=== PATIENT | female | born 1975 | race Caucasian/White ===

== ENCOUNTER 2018-11-24 06:47 | Day surgery (SDC) | payer OTHER ==
[~2018-11-24 06:47] MED LIST: Lactated Ringers 1,000 ML IV SCH; Lidocaine 1%/Sod Bicarbonate in NS 8.4% 1 ML Syringe IDERM PRN; Sodium Chloride 0.9% 10 ML Syringe FLUSH PRN
[2018-11-24] MEDS ORDERED: Lidocaine 1% with EPINEPHrine 1:100,000 20 ML MDV ONE (07:07)
[2018-11-24] MEDS ORDERED: Bupivacaine 0.5% 30 ML SDV ONE (07:08)
[2018-11-24] MEDS ORDERED: Sodium Chloride 0.9% 50 ML SDV ONE (07:08)
[2018-11-24] MEDS ORDERED: Scopolamine 1.5 MG Transdermal Patch TRDERM PRN (07:43)
--- NOTE | 2018-11-24 07:54 | PCM.PREANE ---
Preanesthetic Assessment - Anesthesia/Transfusion/Family Hx Anesthesia History: Prior Anesthesia Reaction (nausea) Family History of Anesthesia Reaction: No Transfusion History: No Prior Transfusion(s) - Review of Systems General: Other (head cold) Pulmonary: No Symptoms Cardiovascular: No Symptoms Gastrointestinal: No Symptoms Neurological: Numbness (right hand carrpal tunnel) Other: Reports: None - Physical Assessment NPO Status Date: 11/23/18 NPO Status Time: 23:20 Pulse: 70 O2 Sat by Pulse Oximetry: 95 Respiratory Rate: 16 Blood Pressure: 105/76 Temperature: 37.6 C Vital Signs: Last Vital Signs Temp 37.6 C 11/24/18 07:00 Pulse 70 11/24/18 07:00 Resp 16 11/24/18 07:00 BP 105/76 11/24/18 07:00 Pulse Ox 95 11/24/18 07:00 Height: 1.63 m Weight: 71.214 kg ASA Class: 2 Mental Status: Alert & Oriented x3 Airway Class: Mallampati = 1 Dentition: Reports: Normal Dentition, [place](s) Thyro-Mental Finger Breadths: 3 Mouth Opening Finger Breadths: 3 ROM/Head Extension: Full Lungs: Clear to Auscultation, Normal Respiratory Effort Cardiovascular: Regular Rate, Regular Rhythm, No Murmurs - Lab Values: Laboratory Last Values WBC 8.61 K/mm3 (3.98-10.04) 11/22/18 11:51 RBC 4.56 M/mm3 (3.98-5.22) 11/22/18 11:51 Hgb 15.0 gm/L (11.2-15.7) 11/22/18 11:51 Hct 42.7 % (34.1-44.9) 11/22/18 11:51 MCV 93.6 fl (79.4-94.8) 11/22/18 11:51 MCH 32.9 pg (25.6-32.2) H 11/22/18 11:51 MCHC 35.1 g/dl (32.2-35.5) 11/22/18 11:51 RDW Std Deviation 40.2 fL (36.4-46.3) 11/22/18 11:51 Plt Count 246 K/mm3 (182-369) 11/22/18 11:51 MPV 9.9 fl (9.4-12.3) 11/22/18 11:51 Neut % (Auto) 66.9 % (34.0-71.1) 11/22/18 11:51 Lymph % (Auto) 22.4 % (19.3-51.7) 11/22/18 11:51 [place] % (Auto) 9.5 % (4.7-12.5) 11/22/18 11:51 Eos % (Auto) 0.9 (0.7-5.8) 11/22/18 11:51 Baso % (Auto) 0.2 % (0.1-1.2) 11/22/18 11:51 Neut # (Auto) 5.75 K/mm3 (1.56-6.13) 11/22/18 11:51 Lymph # (Auto) 1.93 K/mm3 (1.18-3.74) 11/22/18 11:51 [place] # (Auto) 0.82 K/mm3 (0.24-0.36) H 11/22/18 11:51 Eos # (Auto) 0.08 K/mm3 (0.04-0.36) 11/22/18 11:51 Baso # (Auto) 0.02 K/mm3 (0.01-0.08) 11/22/18 11:51 Creatinine 0.8 mg/dL (0.55-1.02) 11/22/18 11:51 Est Cr Clr Drug Dosing TNP 11/22/18 11:51 Estimated GFR (MDRD) > 60 mL/min (>60) 11/22/18 11:51 Urine Color Yellow (Yellow) 11/22/18 11:51 Urine Appearance Clear (Clear) 11/22/18 11:51 Urine pH 6.5 (5.0-8.0) 11/22/18 11:51 Ur Specific [place] 1.025 (1.005-1.030) 11/22/18 11:51 Urine Protein Negative (Negative) 11/22/18 11:51 Urine Glucose (UA) Negative (Negative) 11/22/18 11:51 Urine Ketones Negative (Negative) 11/22/18 11:51 Urine Occult Blood Negative (Negative) 11/22/18 11:51 Urine Nitrite Negative (Negative) 11/22/18 11:51 Urine Bilirubin Negative (Negative) 11/22/18 11:51 Urine Urobilinogen 0.2 (0.2-1.0) 11/22/18 11:51 Ur Leukocyte Esterase Trace (Negative) H 11/22/18 11:51 Urine RBC 0-5 /hpf (0-5) 11/22/18 11:51 Urine WBC 0-5 /hpf (0-5) 11/22/18 11:51 Ur Epithelial Cells 0-5 /hpf (0-5) 11/22/18 11:51 Urine Bacteria Few /hpf (FEW) 11/22/18 11:51 Urine Mucus Few /hpf (FEW) 11/22/18 11:51 Urine HCG, Qual Negative (NEGATIVE) 11/22/18 11:51 Blood Type AB POSITIVE 11/22/18 11:51 Gel Antibody Screen Negative 11/22/18 11:51 - Allergies Allergies/Adverse Reactions: Allergies Allergy/AdvReac Type Severity Reaction Status Date / Time cefaclor [From Ceclor] Allergy Other Verified 11/24/18 07:40 Penicillins Allergy Hives Verified 11/24/18 07:40 - Blood Blood Available: Yes Product(s) Available: PRBC - Anesthesia Plan Pre-Op Medication Ordered: None - Acknowledgements Anesthesia Type Planned: General Anesthesia Pt an Appropriate Candidate for the Planned Anesthesia: Yes Alternatives and Risks of Anesthesia Discussed w Pt/Guardian: Yes Pt/Guardian Understands and Agrees with Anesthesia Plan: Yes PreAnesthesia Questionnaire HEENT History: Reports: None Cardiovascular History: Reports: None Respiratory History: Reports: None Other Gastrointestinal History: Right upper quadrant abdominal pain Other Genitourinary History: Pelvic pain [employer] History: Reports: Endometrial Ablation, , Other (See Below) Other OB/BYN History: Hysteroscopy Musculoskeletal History: Reports: None Neurological History: Reports: None Psychiatric History: Reports: None Endocrine/Metabolic History: Reports: None Hematologic History: Reports: None Immunologic History: Reports: None Oncologic (Cancer) History: Reports: None Dermatologic History: Reports: Other (See Below) Other Dermatologic History: Hyperhidrosis of axilla - Past Surgical History Head Surgeries/Procedures: Reports: None HEENT Surgical History: Reports: LASIK Cardiovascular Surgical History: Reports: None Respiratory Surgical History: Reports: None GI Surgical History: Reports: None Female Surgical History: Reports: None Endocrine Surgical History: Reports: None Neurological Surgical History: Reports: Other (See Below) Other Neurological Surgeries/Procedures: Cervical surgery Musculoskeletal Surgical History: Reports: None Oncologic Surgical History: Reports: None Dermatological Surgical History: Reports: None - SUBSTANCE USE Smoking Status *Q: Former Smoker Tobacco Use Within Last Twelve Months: No Second Hand Smoke Exposure: No Days Per Week of Alcohol Use: 1 Number of Drinks Per Day: 1 Total Drinks Per Week: 1 Recreational Drug Use History: No - HOME MEDS Home Medications: Home Meds . [No Known Home Meds] 11/23/18 [History] - CURRENT (IN HOUSE) MEDS Current Meds: Current Medications Lactated Ringer's (Ringers, Lactated) 1,000 mls @ 125 mls/hr IV ASDIRECTED CORDELIA Last Admin: 11/24/18 07:15 Dose: 125 mls/hr Lidocaine/Sodium Bicarbonate (Buffered Lidocaine 1% In Ns 8.4%) 0.25 ml IDERM ONETIME PRN PRN Reason: Prior to IV Start Last Admin: 11/24/18 07:14 Dose: 0.25 ml Scopolamine (Transderm-Scop) 1.5 mg TRDERM ONETIME PRN PRN Reason: Nausea/Vomiting Stop: 11/24/18 18:00 Sodium Chloride (Saline Flush) 10 ml FLUSH ASDIRECTED PRN PRN Reason: Keep Vein Open Discontinued Medications Bupivacaine HCl (Marcaine 0.5%) Confirm Administered Dose 30 ml .ROUTE .STK-MED ONE Stop: 11/24/18 07:09 Lidocaine/Epinephrine (Xylocaine 1% With Epinephrine 1:100,000) Confirm Administered Dose 20 ml .ROUTE .STK-MED ONE Stop: 11/24/18 07:08 Sodium Chloride (Normal Saline) Confirm Administered Dose 50 ml .ROUTE .STK-MED ONE Stop: 11/24/18 07:09
[2018-11-24] MEDS ORDERED: fentaNYL 250 MCG/5 ML SDV ONE (08:54)
[2018-11-24] MEDS ORDERED: Propofol 200 MG/20 ML SDV ONE ×2 (08:54→09:51)
[2018-11-24] MEDS ORDERED: Midazolam 1 MG/ML 2 ML SDV ONE (08:54)
[2018-11-24] MEDS ORDERED: Ondansetron 4 MG/2 ML SDV ONE (08:56)
[2018-11-24] MEDS ORDERED: Dexamethasone 4 MG/ML 5 ML MDV ONE (08:56)
[2018-11-24] MEDS ORDERED: Lidocaine 1% 4 ML ONE (08:56)
[2018-11-24] MEDS ORDERED: Rocuronium 50 MG/5 ML Vial ONE (08:56)
[2018-11-24] MEDS ORDERED: ceFAZolin 1 GM Vial ONE (09:00)
[2018-11-24] MEDS ORDERED: Ketamine 500 mg/10 ML MDV ONE (09:19)
[2018-11-24] MEDS ORDERED: HYDROmorphone 0.5 MG/0.5 ML Syringe ONE ×2 (09:20)
[2018-11-24] MEDS ORDERED: Lactated Ringers 1,000 ML ONE (09:35)
[2018-11-24] MEDS ORDERED: Ketorolac 30 MG/ML SDV ONE (09:59)
[2018-11-24] MEDS ORDERED: Acetaminophen/oxyCODONE 325-5 MG Tab PO PRN (10:05)
[2018-11-24] MEDS ORDERED: Ondansetron 4 MG/2 ML SDV IVPUSH PRN ×2 (10:05→10:29)
--- NOTE | 2018-11-24 10:10 | PCM.OPNOTE ---
- General Post-Op/Procedure Note Date of Surgery/Procedure: 11/24/18 Operative Procedure(s): Total vaginal hysterectomy with bilateral salpingectomy Findings: Uterus was within normal doses far as size is concerned. Ovaries were functional in appearance small simple cyst left ovary. Moderate scarring within the endometrial cavity consistent with endometrial ablation. Pre Op Diagnosis: 1. Pelvic pain. 2. Status post endometrial ablation Post-Op Diagnosis: Same Anesthesia Technique: General ET Tube Other Anesthesia Type: Lidocaine quarter percent with [id number] mL total Primary Surgeon: Partha Blas Secondary Surgeon: Layton Camacho Anesthesia Provider: Danny Grullon Reason Editor Publications Was Necessary: Retraction, assistance, patient safety, quantity of care Role of Editor Publications: Same Pathology: Uterus and bilateral fallopian tubes in one specimen container Fluid Replacement, Intraop: 1,200 EBL in mLs: 25 Complications: None Condition: Good Free Text/Narrative:: Surgery duration: 35 minutes Procedure: The patient was placed in supine position on the operating table. General endotracheal anesthesia was accomplished. After positioning, and adequate prep and drape, the procedure was then performed. Sterile speculum was placed in the vagina and cervix was visualized. Cervix was injected with lidocaine quarter percent with epinephrine-20 mL used. A full circumference incision was made in the cervical epithelium. The bladder was pushed well back off cervix. Posterior cul-de-sac was then entered sharply without problems. Left uterosacral was crossclamped with a Enseal vessel closure system. The left uterosacral and then the right uterosacral ligament pedicles were developed using the Enseal system. The anterior cul-de-sac was then entered without problems and the uterine vasculature, cardinal ligament and broad ligament were then developed using Enseal vessel closure system. The uterus was inverted at this time and upper broad ligament fallopian tube pedicles were crossclamped with Bree clamps. Specimen was totally removed. Both these pedicles were then secured with a Bree stitch of #1 Vicryl. Left and right fallopian tube were normal in appearance.. Using Enseal vessel closure system each of the tubes was then removed and sent with the specimen. The patient was found to be hemostatically intact at this time. Vaginal cuff was sutured for hemostatic reasons with a running locked suture of 0 Monocryl from the 2 o'clock position to the 10 o'clock position posteriorly. Vaginal cuff was then closed from right to left side with a running locked suture of 0 Monocryl. Patient was returned to supine position and awakened from general endotracheal anesthesia. She tolerated the procedure and left the operating room in satisfactory condition.
[2018-11-24] MEDS ORDERED: Ketorolac 30 MG/ML SDV IVPUSH SCH (10:15)
--- NOTE | 2018-11-24 10:20 | PCM.POSTAN ---
POST ANESTHESIA ASSESSMENT - MENTAL STATUS Mental Status: Alert, Oriented - VITAL SIGNS Pulse Rate: 54 SaO2: 95 Resp Rate: 13 Blood Pressure: 107/65 Temperature: 37.4 C - RESPIRATORY Respiratory Status: Respiratory Rate WNL, Airway Patent, O2 Saturation Stable, Supplemental Oxygen - CARDIOVASCULAR CV Status: Pulse Rate WNL, Blood Pressure Stable - GASTROINTESTINAL GI Status: No Symptoms - PAIN Pain Score: 0 - POST OP HYDRATION Hydration Status: Adequate & Stable
[2018-11-24] MEDS ORDERED: diphenhydrAMINE 50 MG/ML SDV IVPUSH PRN (10:29)
[2018-11-24] MEDS ORDERED: fentaNYL 100 MCG/2 ML SDV IVPUSH PRN (10:29)
[2018-11-24] MEDS ORDERED: HYDROmorphone 0.5 MG/0.5 ML Syringe IVPUSH PRN (10:29)
[2018-11-24] MEDS ORDERED: Meperidine 50 MG/ML Vial IVPUSH PRN (10:29)
[2018-11-24] MEDS ORDERED: diphenhydrAMINE 50 MG/ML SDV IVPUSH ONE (10:45)
--- NOTE | 2018-11-24 11:25 | PCM48HPAN ---
Post Anesthesia Note - EVALUATION WITHIN 48HRS OF ANESTHETIC Vital Signs in Normal Range: Yes Patient Participated in Evaluation: Yes Respiratory Function Stable: Yes Airway Patent: Yes Cardiovascular Function Stable: Yes Hydration Status Stable: Yes Pain Control Satisfactory: Yes Nausea and Vomiting Control Satisfactory: Yes Mental Status Recovered: Yes
== END 2018-11-24 13:30 | disposition home or self-care (01) ==
LOC: JD.SDS 06:47
PROVIDERS: ATTEND Obstetrics & Gynecology
DX: R10.2 Pelvic and perineal pain (principal); N87.9 Dysplasia of cervix uteri, unspecified; N88.8 Other specified noninflammatory disorders of cervix uteri; N72 Inflammatory disease of cervix uteri; N80.0 Endometriosis of uterus; N73.6 Female pelvic peritoneal adhesions (postinfective); N83.8 Other noninflammatory disorders of ovary, fallopian tube and broad ligament; Z87.891 Personal history of nicotine dependence; Z88.1 Allergy status to other antibiotic agents
CPT/HCPCS: 36415; 58552; 81001; 81025; 82565; 85025; 86850; 86900; 86901; A9270; J0690; J1100; J1170; J1200; J1885; J2250; J2405; J2704; J3010; J3490; J7120; J2001

== ENCOUNTER 2018-12-13 11:34 | Inpatient (IN) | payer OTHER ==
[2018-12-13] MEDS ORDERED: Ondansetron 4 MG Tab.DIS PO PRN (11:55)
[2018-12-13] MEDS ORDERED: Sodium Chloride 0.9% 1,000 ML IV ONE (12:30)
[2018-12-13] MEDS ORDERED: Diatrizoate Meglumine/Diatrizoate Sodium 37% 120 ML Bottle PO ONE (12:45)
[2018-12-13] MEDS ORDERED: Iopamidol 612 MG/ML 100 ML Bottle IVPUSH ONE (12:45)
[2018-12-13] MEDS ORDERED: Sodium Chloride 0.9% 10 ML Syringe FLUSH PRN (12:45)
[2018-12-13] MEDS: HYDROmorphone 1 MG/ML Syringe IVPUSH PRN ×3 (12:50→21:10)
[2018-12-13] MEDS: Acetaminophen 325 MG Tab PO PRN ×2 (13:44→20:27)
[2018-12-13] MEDS: Dextrose 5%-Lactated Ringers 1,000 ML IV SCH ×2 (13:45→21:09)
--- NOTE | 2018-12-13 14:56 | CT ---
CT abdomen and pelvis Technique: Multiple axial sections were obtained from above the dome of the diaphragm inferiorly through the pubic symphysis. Intravenous and oral contrast was utilized. Oral contrast does not completely opacify the bowel. Comparison: Prior CT exam of 12/08/18. Findings: Lung bases that are seen appear without acute parenchymal change. Liver contains no focal parenchymal abnormality. Gallbladder contains no calcified gallstones. Spleen appears within normal limits. Mild amount of fluid is seen throughout the abdomen which is an interval change from previous exam. Fluid also seen to extend into the pelvis. Kidneys show symmetric contrast enhancement without hydronephrosis or discrete mass. Adrenal glands show no nodule. Pancreas is within normal limits. Aorta shows no aneurysm. No retroperitoneal adenopathy or discrete mesenteric abnormalities are seen. Upper infundibulum of the right kidney is well opacified on current study and is better seen on current exam than previous and appears normal. Delayed images show contrast within the distal ureters as well as bladder. Appendix is not visualized with certainty due to haziness being seen within the pelvic fat. Previous hysterectomy is noted. Cystic change is noted within both ovaries which is felt to be physiologic. Focal collection of low density is seen within the cul-de-sac measuring about 4.3 cm in size. Uncertain if this is due to loculated ascites or due to abscess as the Hounsfield unit measurements are in the 20s. Bone window settings were reviewed which show spondylolytic defects at L5-S1 with degenerative change at L5-S1. Rudimentary disc is again noted at S1-S2. Impression: 1. Small amount of ascites throughout the abdomen and pelvis. 2. Haziness within the pelvic fat is seen. This obscures visualization of the appendix. 3. Focal fluid within the cul-de-sac either due to abscess or loculated ascites. Abscess most likely given the history of abdominal pain and fever. 4. Upper pole calyx within the right kidney is well seen on current exam and no further follow-up of the finding seen on previous CT is needed. Diagnostic code #3
[2018-12-13] MEDS: Meropenem Premix 500 MG in Premix Bag 1 BAG IV SCH ×2 (15:34→21:09)
[2018-12-13] MEDS: Ibuprofen 600 MG Tab PO PRN (17:19)
[2018-12-13] MEDS: Ondansetron 4 MG/2 ML SDV IVPUSH PRN (20:27)
[2018-12-14] MEDS: Meropenem Premix 500 MG in Premix Bag 1 BAG IV SCH ×4 (03:56→22:04)
[2018-12-14] MEDS: Dextrose 5%-Lactated Ringers 1,000 ML IV SCH (03:56)
[2018-12-14] MEDS: HYDROmorphone 1 MG/ML Syringe IVPUSH PRN ×3 (07:10→13:19)
--- NOTE | 2018-12-14 07:52 | HP ---
DATE OF ADMISSION: 12/13/2018 ADMISSION DIAGNOSIS: Vaginal cuff abscess/cellulitis. HISTORY OF PRESENT ILLNESS: The patient is a 43-year-old 2, para 2-0-0-2 white female who was seen in clinic today with complaints of fever, chills, and increased abdominal pain, and was found to have a temperature elevation to 100.3 degrees, abdominal pain, which is generalized with some guarding. On evaluation, her white blood count was found to be normal and there was mild leukocytosis, but the remainder part of CBC, comprehensive metabolic profile, and urinalysis were remarkable only for 5-10 white blood cells in the urine and positive blood present. The patient was evaluated with blood cultures, which are pending. She is admitted for evaluation and underwent a CAT scan with contrast. CAT scan with contrast showed what appeared to be a 4.3 cm in the largest dimension collection of fluid in the pelvis just above the vaginal cuff, which appears to be possible abscess, possible cellulitis of the vaginal cuff. The patient has a small amount of fluid in the peritoneal cavity, possibly inflammatory in nature. Urinary tract appears normal with normal visualization of kidneys, ureters, and bladder. Previously unseen upper pole of the right kidney is seen now and is entirely without problems. Working diagnosis is a pelvic infection. She is status post surgery on 11/24/2018 consisting of a total vaginal hysterectomy with bilateral salpingectomy. The patient's surgery was unremarkable. The preoperative diagnosis at that time was pelvic pain status post endometrial ablation. The patient's initial postoperative course was unremarkable, but on 12/08/2018 she was seen in clinic at which time she was evaluated with a CAT scan of the pelvis because of blood in her urine and pelvic pain. That CAT scan with contrast showed a poorly seen superior infundibulum on the delayed images within the right upper kidney. Retrograde study was recommended. Other portions of kidneys and collecting system appeared to be within normal limits. There were degenerative changes within the lumbar spine, which were similar to prior CAT scan. Other normal findings were present. No evidence of pelvic or abdominal mass noted. At that time and again today, the creatinine was within normal limits. A culture was performed on the urine and this showed group B Streptococcus 30,000 to 40,000. The patient is allergic to penicillin and cephalosporins. Therefore, was treated with Levaquin 500 mg p.o. daily. Approximately 2 days ago, she began having some low-grade temperatures, which she increased to moderate temperature elevation, and pain increased. She at this time was having some dehydration secondary to inability to keep fluids down, generalized abdominal discomfort, and continued minimal vaginal bleeding. PAST MEDICAL HISTORY: 1. Vaginal delivery x2. 2. Chronic pelvic pain. PAST SURGICAL HISTORY: 1. Total vaginal hysterectomy with bilateral salpingectomy on 11/24/2018. 2. Endometrial ablation. 3. Corneal LASIK surgery. 4. Neck surgery. FAMILY HISTORY: Maternal grandmother diagnosed with breast cancer at age 48. Family history of heart disease in females before age 60 and some other heart disease noted in the extended family. SOCIAL HISTORY: The patient is . She lives in [facility]. She is a former smoker. She does not use any alcohol, drugs, or tobacco at this time. She exercises 4-5 times per week. REVIEW OF SYSTEMS: GENERAL: The patient feels poorly. She is somewhat lethargic and has generalized discomfort. She is running a fever. SKIN: Warm and dry without lesions. HEENT: Neck and back within normal limits. LUNGS: Clear with good breath sounds in all lung phillip. CARDIOVASCULAR: Shows regular rate and rhythm without murmurs. BREASTS: Deferred. ABDOMEN: Shows positive bowel sounds. It is flat. It is tender with palpation with some guarding noted. There is pain extending around from the costovertebral angles to the front and involving most of the pelvis. Bimanual exam is not done at this time because of the patient's significant discomfort. EXTREMITIES AND NEUROLOGICAL: Grossly within normal limits. LABORATORY DATA: Laboratory testing done on 12/13/2018 shows urinalysis which is slightly cloudy, specific gravity is 1.020, protein is 1+, blood is 1+, leukocyte esterase activity is 1+, wbc's are 5-10 per high-power field, and epithelial cells are 5- 10 per high-power field. Urine culture is set up. Her CBC shows a white blood count of 4.77, hemoglobin is 14, hematocrit is 41.3, and platelets were 357,000. Neutrophils are 82.3%. Comprehensive metabolic profile shows a random glucose of 111. Her creatinine is 0.8 mg/dL. Bilirubin is mildly elevated at 1.2 and A/P ratio is 0.8. Her alkaline phosphatase, ALT, and AST are within normal limits. ASSESSMENT: 1. Pelvic infection most probably secondary to vaginal cuff abscess/cellulitis. 2. Status post total vaginal hysterectomy with bilateral salpingectomy on 11/24/2018. 3. Group B strep positive urine culture approximately 1 week ago, treated initially with Macrobid, and then when culture results/sensitivities returned, Levaquin 500 mg p.o. daily. 4. Generally, healthy female. PLAN: 1. I have consulted Pharmacy for recommendations concerning antibiotic therapy in this patient considering her allergies. 2. IV rehydration with normal saline initially, then D5 LR. Will do I and O. 3. Dilaudid 0.5 mg every 2 hours IV p.r.n. for pain. 4. Tylenol for reduction in temperature. 5. We will reassess the patient's exam within the next 12 hours after pain control is on board and antibiotics had been in place for some time to determine whether there is any fluctuance to vaginal cuff abscess findings. 6. Blood cultures are pending. MMODAL /[id number]
[2018-12-14] MEDS ORDERED: Dextrose 5%-Lactated Ringers 1,000 ML IV SCH (08:15)
--- NOTE | 2018-12-14 09:04 | PCM.SN ---
- Free Text/Narrative Note: Patient's pain is improved this morning. She rates it 3-4 on a scale 10. She has taken a lot of on a couple occasions. Last was at 0710 hrs. this morning. She had not had any pain medications since last evening. By patient care documentation appears that she slept well. She reports that she slept poorly. Had some difficulty passing water last night but has gone to the bathroom this morning without problems. Nausea has improved significantly. Clinically patient is been afebrile. Vital signs and stable. In general patient looks much more comfortable in yesterday. Her color has returned. HEENT, neck and back within normal. Dehydration. Result. Abdomen is flat, soft, tender with palpation. Or tenderness noted above the umbilicus and below the umbilicus. No guarding or rebound tenderness noted. No inguinal lymphadenopathy.. Genital exam per bimanual shows minimal discomfort in the area of the vaginal cuff. There is no area of fluctuance or abscess palpated. Nothing that appears to be of appropriate size or consistency to drain. Patient reports she has more pain father of the abdomen or down. Findings most probably consistent with a generalized peritonitis. Extremities and neurological exam grossly within normal limits. Assessment: 1. Pelvic infection possible cuff cellulitis/possible abscess. Condition improved on antibiotics since yesterday. 2. Nausea improved. Will restart regular diet. 3. Blood cultures pending 4. Fairly normal bowel activity. Appetite returned. Plan: 1. Increase diet regular. 2. Regular activity with assistance 3. Continue antibiotics as of present 4. Switch to ibuprofen from a lot of as. 5. Zofran when necessary nausea as indicated. 6. Obtain a CBC later today 7. Consider redoing abdominal pelvic CAT scan tomorrow.
[2018-12-14] MEDS: Acetaminophen 325 MG Tab PO PRN (10:24)
[2018-12-14] MEDS: Ondansetron 4 MG/2 ML SDV IVPUSH PRN ×2 (10:26→16:32)
[2018-12-14] MEDS: Docusate Sodium 100 MG Cap PO SCH (10:39)
[2018-12-14] MEDS: Ibuprofen 600 MG Tab PO PRN ×2 (15:13→22:03)
[2018-12-14] MEDS: Acetaminophen/oxyCODONE 325-5 MG Tab PO PRN ×3 (16:49→22:02)
[2018-12-14] MEDS ORDERED: Zolpidem 5 MG Tab PO PRN (19:57)
[2018-12-15] MEDS: Docusate Sodium 100 MG Cap PO SCH ×2 (00:39→08:40)
[2018-12-15] MEDS: Meropenem Premix 500 MG in Premix Bag 1 BAG IV SCH ×4 (03:04→22:07)
[2018-12-15] MEDS: Acetaminophen/oxyCODONE 325-5 MG Tab PO PRN ×2 (06:32→10:02)
[2018-12-15] MEDS: Ibuprofen 600 MG Tab PO PRN ×3 (06:33→22:09)
--- NOTE | 2018-12-15 08:22 | PCM.SN ---
- Free Text/Narrative Note: Hospital day 2: Patient feels much better this a.m. Her mother reports that she had one short episode of chills last night. Patient reports she slept well and which is what the patient's care record indicates also. Her pain is 3 on a scale of 10. She is voiding well. She has had some loose stools. These have been infrequent however. She is tolerating fluids well but has not tried solid foods yet. She has been taking her present for pain. Takes 1-2 every 4 hours when necessary. Clinically her vital signs are stable. Patient is been afebrile since late yesterday afternoon. In general patient appears to be well-developed, well-nourished, slender individual. She is alert and oriented 3 and appears more cheerful today. HEENT, neck and back within normal limits. Lungs are clear with good breath sounds in all lung phillip. Cardiovascular exam shows regular rate and rhythm without murmurs. Abdomen shows positive bowel sounds. Is flat, soft, tender with deep palpation. Subjectively pain is significantly improved from previous evaluation yesterday before. Legs nontender. Laboratory testing shows white count 9.96-unchanged from yesterday. Hemoglobin and hematocrit 10.4 and 30.7 with platelets 240,000. CMP is within normal limits with the exception of potassium which is minimally decreased at 3.4. Assessment: 1. Pelvic infectioncuff cellulitis versus cuff abscess. Clinical condition improving. 2. Some loose stoolsquestion related to antibiotic therapy 3. Her preliminary blood cultures have returned negative. Plan: 1. Repeat CT of pelvis today 2. Continue present antibiotic regimen-have consulted pharmacy for recommendations re: modification of dose, associated loose stools patient reported by patient and potiential options for post-hospital antibiotic therapy 3. Percocet and ibuprofen for pain control 4. Regular diet 5. Await final blood and urine culture results
[2018-12-15] MEDS: Ondansetron 4 MG/2 ML SDV IVPUSH PRN (10:02)
[2018-12-15] MEDS ORDERED: Sodium Chloride 0.9% 10 ML Syringe FLUSH ONE (10:07)
[2018-12-15] MEDS ORDERED: Iopamidol 612 MG/ML 100 ML Bottle IVPUSH ONE (10:07)
[2018-12-15] MEDS ORDERED: Diatrizoate Meglumine/Diatrizoate Sodium 37% 120 ML Bottle PO ONE (10:07)
--- NOTE | 2018-12-15 11:23 | CT ---
CT abdomen and pelvis Technique: Multiple axial sections were obtained from above the dome of the diaphragm inferiorly through the pubic symphysis. Intravenous and oral contrast was utilized. Reconstructed coronal and sagittal images were reviewed. Comparison: Prior CT abdomen and pelvis exams of 12/13/18 and 12/08/18. Findings: Increasing abscess size is noted within the pelvis. This abscess appears bilobed with one portion containing air bubbles. This has maximum measurements of around 8.1 cm. Second cystic area is noted within the left pelvis. This is most likely due to an ovarian cyst measuring 3.0 cm. Mild increasing fluid is noted around the liver. Small right sided pleural effusion and trace left-sided pleural effusion is seen which is an interval change. Parenchymal densities are noted within both lung bases most likely due to prominent areas of atelectasis. Liver and spleen shows no focal abnormality. Gallbladder contains no calcified gallstones. Pancreas is normal. Adrenal glands show no nodule. Kidneys show symmetric contrast enhancement without hydronephrosis or mass. Aorta shows no aneurysm. Slightly prominent retroperitoneal lymph nodes are seen most likely on an inflammatory and from a reactive basis from the abdominal process. Bone window settings were reviewed which shows spondylitic defects with stable disc space narrowing and spondylolisthesis at L5-S1. Impression: 1. Increasing size of pelvic abscess which now appears bilobed and shows evidence of some air bubbles. This has a greatest measurement of 8.1 cm. 2. 3 cm cystic area within the left pelvis most likely representing small ovarian cyst. 3. Slight increasing fluid mostly around the liver within the abdomen. 4. Increasing pleural effusions as well as prominent amount of atelectasis within both lung bases. 5. Adenopathy within the retroperitoneum most likely on a reactive basis from the abdominal process. Diagnostic code #5
[2018-12-15] MEDS ORDERED: Propofol 200 MG/20 ML SDV ONE ×3 (13:18→14:09)
[2018-12-15] MEDS ORDERED: Ondansetron 4 MG/2 ML SDV ONE (13:18)
[2018-12-15] MEDS ORDERED: Lidocaine 1% 4 ML ONE (13:18)
[2018-12-15] MEDS ORDERED: fentaNYL 250 MCG/5 ML SDV ONE (13:19)
[2018-12-15] MEDS ORDERED: Midazolam 1 MG/ML 2 ML SDV ONE (13:19)
--- NOTE | 2018-12-15 13:25 | PCM.SN ---
- Free Text/Narrative Note: Preoperative note: Clinically the patient appears recently stable. She is more careful and she has been. Stable and patient is afebrile. Laboratory testing done this morning is as per previous note. White blood count is normal. CT of the abdomen and pelvis was done earlier today and findings the followin. Increases as a pelvic abscess which now appears bilobed and shows evidence of some air bubbles. Greatest dimension is 8.1 cm 2. 3 cm cystic area within the left pelvis most probably representing small ovarian cyst. 3. Slight increase in fluid also round liver within the abdomen. 4. Increasing pleural effusions as well as prominent amount of atelectasis within both lung bases 5. Adenopathy within the retroperitoneum most likely on a reactive basis from the abdominal process. Assessment: 1. Discussion is held with patient concerning these findings in light of her history of infection. I rcommended that the abscess be evaluated more completely under anesthesia and drained. I recommended the following procedure and consent is obtained for: Exam under anesthesia, possible drainage of pelvic abscess, possible laparoscopy, possible laparotomy. The procedure, risks, benefits possible need to modify procedure depending on the findings at time of surgery all discussed with patient. 2. Atelectasis. After surgery will proceed with incentive spirometry and rapid return to normal physical activity 3. Patient has continued to receive her doses of antibiotics. I do not feel she needs additional preoperative antibiotics at this time. Plan: 1. Surgery as described above. 2. SCDs 3. Incentive spirometry after surgery 4. SUBHASH hose after surgery
[2018-12-15] MEDS ORDERED: Ketorolac 30 MG/ML SDV ONE (13:28)
--- NOTE | 2018-12-15 13:29 | PCM.PREANE ---
Preanesthetic Assessment - Anesthesia/Transfusion/Family Hx Anesthesia History: Prior Anesthesia Without Reaction Family History of Anesthesia Reaction: No Transfusion History: No Prior Transfusion(s) - Review of Systems General: Fever, Fatigue, Malaise, Chills Pulmonary: No Symptoms, Other (ct scan shows increased pleural effusions with prominent atelectasis) Cardiovascular: No Symptoms Gastrointestinal: No Symptoms Neurological: No Symptoms - Physical Assessment NPO Status Date: 12/15/18 NPO Status Time: 11:00 Pulse: 72 O2 Sat by Pulse Oximetry: 96 Respiratory Rate: 12 Blood Pressure: 94/72 Temperature: 36.4 C Vital Signs: Last Vital Signs Temp 36.4 C 12/15/18 07:41 Pulse 72 12/15/18 07:41 Resp 12 12/15/18 07:41 BP 94/72 12/15/18 07:41 Pulse Ox 96 12/15/18 07:41 Height: 1.63 m Weight: 72.665 kg ASA Class: 2E Mental Status: Alert & Oriented x3 Airway Class: Mallampati = 2 Dentition: Reports: Normal Dentition Thyro-Mental Finger Breadths: 3 Mouth Opening Finger Breadths: 3 ROM/Head Extension: Full Lungs: Clear to Auscultation, Normal Respiratory Effort Cardiovascular: Regular Rate, Regular Rhythm - Lab Values: Laboratory Last Values WBC 9.96 K/mm3 (3.98-10.04) 12/15/18 06:36 RBC 3.24 M/mm3 (3.98-5.22) L 12/15/18 06:36 Hgb 10.4 gm/L (11.2-15.7) L 12/15/18 06:36 Hct 30.7 % (34.1-44.9) L 12/15/18 06:36 MCV 94.8 fl (79.4-94.8) 12/15/18 06:36 MCH 32.1 pg (25.6-32.2) 12/15/18 06:36 MCHC 33.9 g/dl (32.2-35.5) 12/15/18 06:36 RDW Std Deviation 37.9 fL (36.4-46.3) 12/15/18 06:36 Plt Count 240 K/mm3 (182-369) 12/15/18 06:36 MPV 9.6 fl (9.4-12.3) 12/15/18 06:36 Neut % (Auto) 89.2 % (34.0-71.1) H 12/15/18 06:36 Lymph % (Auto) 5.2 % (19.3-51.7) L 12/15/18 06:36 Piatt % (Auto) 3.9 % (4.7-12.5) L 12/15/18 06:36 Eos % (Auto) 1.2 (0.7-5.8) 12/15/18 06:36 Baso % (Auto) 0.2 % (0.1-1.2) 12/15/18 06:36 Neut # (Auto) 8.88 K/mm3 (1.56-6.13) H 12/15/18 06:36 Lymph # (Auto) 0.52 K/mm3 (1.18-3.74) L 12/15/18 06:36 Piatt # (Auto) 0.39 K/mm3 (0.24-0.36) H 12/15/18 06:36 Eos # (Auto) 0.12 K/mm3 (0.04-0.36) 12/15/18 06:36 Baso # (Auto) 0.02 K/mm3 (0.01-0.08) 12/15/18 06:36 Manual Slide Review Abnormal smear 12/15/18 06:36 Sodium 138 mEq/L (136-145) 12/15/18 06:36 Potassium 3.4 mEq/L (3.5-5.1) L 12/15/18 06:36 Chloride 101 mEq/L (98-107) 12/15/18 06:36 Carbon Dioxide 28 mEq/L (21-32) 12/15/18 06:36 Anion Gap 12.4 (5-15) 12/15/18 06:36 BUN 8 mg/dL (7-18) 12/15/18 06:36 Creatinine 0.9 mg/dL (0.55-1.02) 12/15/18 06:36 Est Cr Clr Drug Dosing 70.32 mL/min 12/15/18 06:36 Estimated GFR (MDRD) > 60 mL/min (>60) 12/15/18 06:36 BUN/Creatinine Ratio 8.9 (14-18) L 12/15/18 06:36 Glucose 94 mg/dL (74-106) 12/15/18 06:36 Calcium 8.5 mg/dL (8.5-10.1) 12/15/18 06:36 Total Bilirubin 0.5 mg/dL (0.2-1.0) 12/15/18 06:36 AST 15 U/L (15-37) 12/15/18 06:36 ALT 14 U/L (14-59) 12/15/18 06:36 Alkaline Phosphatase 67 U/L (46-116) 12/15/18 06:36 Total Protein 6.4 g/dl (6.4-8.2) 12/15/18 06:36 Albumin 2.4 g/dl (3.4-5.0) L 12/15/18 06:36 Globulin 4.0 gm/dL 12/15/18 06:36 Albumin/Globulin Ratio 0.6 (1-2) L 12/15/18 06:36 - Allergies Allergies/Adverse Reactions: Allergies Allergy/AdvReac Type Severity Reaction Status Date / Time cefaclor [From Ceclor] Allergy Other Verified 11/24/18 07:40 Penicillins Allergy Hives Verified 11/24/18 07:40 - Blood Blood Available: No Product(s) Available: None - Anesthesia Plan Pre-Op Medication Ordered: None - Acknowledgements Anesthesia Type Planned: General Anesthesia Pt an Appropriate Candidate for the Planned Anesthesia: Yes Alternatives and Risks of Anesthesia Discussed w Pt/Guardian: Yes Pt/Guardian Understands and Agrees with Anesthesia Plan: Yes PreAnesthesia Questionnaire HEENT History: Reports: None Cardiovascular History: Reports: None Respiratory History: Reports: None Gastrointestinal History: Reports: None Other Gastrointestinal History: Right upper quadrant abdominal pain Other Genitourinary History: Pelvic pain SALES MGR History: Reports: Endometrial Ablation, , Other (See Below) Other OB/BYN History: Hysteroscopy Musculoskeletal History: Reports: None Neurological History: Reports: None Psychiatric History: Reports: None Endocrine/Metabolic History: Reports: None Hematologic History: Reports: None Immunologic History: Reports: None Oncologic (Cancer) History: Reports: None Dermatologic History: Reports: Other (See Below) Other Dermatologic History: Hyperhidrosis of axilla - Infectious Disease History Infectious Disease History: Reports: Chicken Pox - Past Surgical History Head Surgeries/Procedures: Reports: None HEENT Surgical History: Reports: RADHA Cardiovascular Surgical History: Reports: None Respiratory Surgical History: Reports: None Female Surgical History: Reports: Hysterectomy, Other (See Below) Other Female Surgeries/Procedures: ablation Endocrine Surgical History: Reports: None Neurological Surgical History: Reports: Other (See Below) Other Neurological Surgeries/Procedures: Cervical surgery Musculoskeletal Surgical History: Reports: None Oncologic Surgical History: Reports: None Dermatological Surgical History: Reports: None - SUBSTANCE USE Smoking Status *Q: Former Smoker Second Hand Smoke Exposure: No Days Per Week of Alcohol Use: 3 Number of Drinks Per Day: 1 Total Drinks Per Week: 3 Recreational Drug Use History: No - HOME MEDS Home Medications: Home Meds Acetaminophen/oxyCODONE [Percocet 325-5 MG] 2 tab PO Q4H PRN tablet 11/24/18 [ Rx] Ibuprofen 600 mg PO Q4HR PRN #30 tablet 11/24/18 [Rx] - CURRENT (IN HOUSE) MEDS Current Meds: Current Medications Acetaminophen (Tylenol) 650 mg PO Q4H PRN PRN Reason: Fever Last Admin: 12/14/18 10:24 Dose: 650 mg Docusate Sodium (Colace) 100 mg PO BID CORDELIA Last Admin: 12/15/18 08:40 Dose: 100 mg Meropenem/Sodium Chloride 500 (mg/ Premix) 50 mls @ 100 mls/hr IV Q6H CORDELIA Last Admin: 12/15/18 10:02 Dose: 100 mls/hr Ibuprofen (Motrin) 600 mg PO Q4H PRN PRN Reason: Pain/Fever Last Admin: 12/15/18 10:03 Dose: 600 mg Ondansetron HCl (Zofran) 4 mg IVPUSH Q4H PRN PRN Reason: Nausea Last Admin: 12/15/18 10:02 Dose: 4 mg Oxycodone/Acetaminophen (Percocet 325-5 Mg) 1 - 2 tab PO Q4H PRN PRN Reason: Pain Last Admin: 12/15/18 10:02 Dose: 1 tab Zolpidem Tartrate (Ambien) 5 mg PO BEDTIME PRN PRN Reason: Sleep Discontinued Medications Diatrizoate Meglum/Diatrizoate Sod (Gastrografin 37%) 120 ml PO ONETIME ONE Stop: 12/13/18 12:46 Last Admin: 12/13/18 14:08 Dose: 90 ml Diatrizoate Meglum/Diatrizoate Sod (Gastrografin 37%) 90 ml PO ONETIME ONE Stop: 12/15/18 10:08 Last Admin: 12/15/18 11:04 Dose: 90 ml Fentanyl (Sublimaze) Confirm Administered Dose 250 mcg .ROUTE .STK-MED ONE Stop: 12/15/18 13:20 Hydromorphone HCl (Dilaudid) 0.5 mg IVPUSH Q2H PRN PRN Reason: Pain Last Admin: 12/14/18 13:19 Dose: 0.5 mg Sodium Chloride (Normal Saline) 1,000 mls @ 999 mls/hr IV ONETIME ONE Stop: 12/13/18 13:30 Last Admin: 12/13/18 12:49 Dose: 999 mls/hr Dextrose/Lactated Ringer's (Dextrose 5%-Lactated Ringers) 1,000 mls @ 150 mls/ hr IV ASDIRECTED CORDELIA Last Admin: 12/14/18 03:56 Dose: 150 mls/hr Dextrose/Lactated Ringer's (Dextrose 5%-Lactated Ringers) 1,000 mls @ 100 mls/ hr IV ASDIRECTED CORDELIA Lidocaine HCl (Xylocaine-Mpf 1%) Confirm Administered Dose 4 mls @ as directed .ROUTE .STK-MED ONE Stop: 12/15/18 13:19 Iopamidol (Isovue-300 (61%)) 100 ml IVPUSH ONETIME ONE Stop: 12/13/18 12:46 Last Admin: 12/13/18 14:07 Dose: 100 ml Iopamidol (Isovue-300 (61%)) 100 ml IVPUSH ONETIME ONE Stop: 12/15/18 10:08 Last Admin: 12/15/18 11:04 Dose: 100 ml Midazolam HCl (Versed 1 Mg/Ml) Confirm Administered Dose 2 mg .ROUTE .STK-MED ONE Stop: 12/15/18 13:20 Ondansetron HCl (Zofran Odt) 4 mg PO Q6H PRN PRN Reason: Nausea/Vomiting Last Admin: 12/13/18 12:04 Dose: 4 mg Ondansetron HCl (Zofran) Confirm Administered Dose 4 mg .ROUTE .STK-MED ONE Stop: 12/15/18 13:19 Propofol (Diprivan 20 Ml) Confirm Administered Dose 200 mg .ROUTE .STK-MED ONE Stop: 12/15/18 13:19 Sodium Chloride (Saline Flush) 10 ml FLUSH ONETIME PRN PRN Reason: IV FLUSH Stop: 12/13/18 16:00 Last Admin: 12/13/18 14:08 Dose: 10 ml Sodium Chloride (Saline Flush) 10 ml FLUSH ONETIME ONE Stop: 12/15/18 10:08 Last Admin: 12/15/18 11:04 Dose: 10 ml
[2018-12-15] MEDS ORDERED: Scopolamine 1.5 MG Transdermal Patch TRDERM ONE (13:32)
[2018-12-15] MEDS ORDERED: Succinylcholine/Normal Saline 100 MG/5 ML Syringe ONE (13:39)
[2018-12-15] MEDS ORDERED: Lidocaine 1% with EPINEPHrine 1:100,000 20 ML MDV ONE (13:42)
[2018-12-15] MEDS ORDERED: Bupivacaine 0.5% 30 ML SDV ONE (13:44)
[2018-12-15] MEDS ORDERED: Sodium Chloride 0.9% 50 ML SDV ONE (13:45)
[2018-12-15] MEDS ORDERED: Dexamethasone 4 MG/ML SDV ONE (14:08)
[2018-12-15] MEDS ORDERED: Lidocaine 1%/Sod Bicarbonate in NS 8.4% 1 ML Syringe IDERM ONE (14:17)
[2018-12-15] MEDS ORDERED: Lactated Ringers 1,000 ML IV SCH (14:30)
[2018-12-15] MEDS ORDERED: ePHEDrine/Normal Saline 25 MG/5 ML Syringe ONE (14:53)
[2018-12-15] MEDS ORDERED: Lactated Ringers 1,000 ML ONE (15:01)
[2018-12-15] MEDS ORDERED: fentaNYL 100 MCG/2 ML SDV IVPUSH PRN (15:20)
[2018-12-15] MEDS ORDERED: Ondansetron 4 MG/2 ML SDV IVPUSH PRN (15:20)
[2018-12-15] MEDS ORDERED: HYDROmorphone 0.5 MG/0.5 ML Syringe IVPUSH PRN (15:20)
--- NOTE | 2018-12-15 15:48 | PCM.OPNOTE ---
- General Post-Op/Procedure Note Date of Surgery/Procedure: 12/15/18 Operative Procedure(s): Exam under anesthesia, drainage of vaginal cuff abscess , placement of a Malecot catheter Findings: CT showed bilobar collection of fluid at the vaginal cuff with largest dimension 8 cm. Fluid removed from the abscess was mildly cloudy serous in appearance. Aerobic and anaerobic cultures were obtained. Pre Op Diagnosis: Vaginal cuff abscess Post-Op Diagnosis: Same Anesthesia Technique: General ET Tube Primary Surgeon: Partha Blas Secondary Surgeon: Ulisses Garibay Anesthesia Provider: Danny Grullon Role of Progressive Assembler And Fitter: Retraction, quality of care, assistance, patient safety Pathology: Specimen sent for aerobic and anaerobic culture. Fluid Replacement, Intraop: 900 Output, Urine Amount: 150 EBL in mLs: 10 Drain/Tube Comments:: 1. Malecot catheter placed into the abscess cavity. 2. Indwelling bladder catheter left in place Complications: None Condition: Good Free Text/Narrative:: Intake & Output 12/15/18 12/15/18 12/15/18 06:59 14:59 22:59 Intake Total 1300 120 Output Total 1000 175 Balance 300 -55 Surgery duration: 25 minutes Procedure: Patient is taking to operating room and placed in a supine position on the operating table. She had been receiving IV antibiotics preoperatively and due to the time of the last dosage not administered any additional preoperative antibiotics. She was administered general endotracheal anesthesia Exam under anesthesia showed a masslike effect in the suprapubic area on bimanual which was consistent with findings on CT exam. Sequential compression stockings were in place. She was prepped and draped in usual fashion for this procedure. Wyman catheter was placed with resultant output of clear yellow urine. Patient was placed in a dorsal lithotomy position and a speculum was placed in the vagina. Some purulent discharge is noted at the vaginal cuff incision line. The incision line was disrupted mechanically with 2 Allis clamps and an area of abscess was found to be pointing. An 18-gauge spinal needle was placed into this area and a moderate amount of mildly cloudy but serous appearing fluid was removed. This area was then opened larger to allow a uterine packing forceps. The internal loculations of this area were then broken down using a ring forceps. The area was then irrigated with approximately 500 mL of normal saline. No significant bleeding was encountered. At this time a 28 [place]ican Malecot catheter was placed. The vaginal cuff was closed with 2 [id number] sutures with one on each side of the Malecot catheter. This was done in such a fashion as to secure the Malecot catheter but also allow for its removal at the appropriate time. Bimanual exam was again performed and the presence of the masslike effect is no longer felt. At this time patient was returned to supine position. The area was cleaned and the Wyman catheter and the Malecot catheter were securely taped into her leg. She is awakened from general endotracheal anesthesia. She left the operating room in good condition.
[2018-12-15] MEDS ORDERED: Meropenem 1 GM in Sodium Chloride 0.9% 100 ML IV SCH (18:45)
[2018-12-15] MEDS ORDERED: Zolpidem 5 MG Tab PO PRN (21:54)
[2018-12-15] MEDS: Sodium Chloride 0.9% 1,000 ML IV SCH (22:07)
[2018-12-16] MEDS: Ibuprofen 600 MG Tab PO PRN ×2 (04:24→14:25)
[2018-12-16] MEDS: Meropenem Premix 500 MG in Premix Bag 1 BAG IV SCH ×4 (04:24→21:08)
[2018-12-16] MEDS: Acetaminophen/oxyCODONE 325-5 MG Tab PO PRN ×2 (04:29→20:50)
[2018-12-16] MEDS: Sodium Chloride 0.9% 1,000 ML IV SCH (06:14)
--- NOTE | 2018-12-16 10:32 | PCM.SN ---
- Free Text/Narrative Note: Postoperative day one: Patient is doing well. She slept well with Ambien last night. Add Motrin prior to bedtime and then Percocet the same for pain control. Clinically her vital signs are stable, patient is afebrile. She has had no clinical chills or sweats. Pain is significant improved. She is tolerating fluids well. Lungs are clear with good breath sounds in all lung phillip. Cardiovascular exam shows regular rhythm. Abdomen is flat, soft, minimally tender with positive bowel sounds in all quadrants. No CVA tenderness or significant guarding is noted. No masses or organomegaly apparent. I nose are good. Her oral fluid intake is good. The Malecot vaginal drain appears to have approximately 125 mL in it. It is unclear per the chart but by patient report this is in in the collection device since the time of surgery. The device has not been emptied per patient. Musculoskeletal and neurological exam grossly within normal. Patient is in fair spirits. Cultures are negative at the 1. Blood cultures done upon admission are negative at second day. Urine culture from the clinic done on the day of admission shows only small number colonies of group B Streptococcus. Assessment: 1. Hospital day 3/post operative day one: Significantly improved condition. Patient is now been afebrile for greater than 48 hours. Operatory testing is good. No bacteria grown out of the assorted cultures. It appears a drainage or the last 8 hours from the vaginal Malecot catheter is minimal. Plan: 1. Get best estimate of drainage from the Malecot vaginal catheter. If minimal will consider removing this. 2. Continue antibiotics until a.m. of 12/17/2018 and consider discharge from hospital. Pharmacy recommended discharge antibiotics metronidazole 500 mg by mouth twice a day 7 days and Bactrim DS 1 by mouth 3 times a day 7 days. 3. If patient has any more loose stools may considered a probiotic. 4. Urge increase in patient's diet and activity. 5. SUBHASH hose while in bed 6. Continued incentive spirometry
[2018-12-16] MEDS ORDERED: Ondansetron 4 MG/2 ML SDV IVPUSH PRN ×2 (16:36→17:52)
[2018-12-16] MEDS ORDERED: Simethicone 80 MG Tab.Chew PO PRN (16:46)
[2018-12-16] MEDS ORDERED: Metoclopramide 10 MG/2 ML SDV ONE (18:33)
[2018-12-16] MEDS: Metoclopramide 10 MG/2 ML SDV IVPUSH PRN (18:35)
[2018-12-16] MEDS ORDERED: Saccharomyces Boulardii (Probiotic) 250 MG Cap PO SCH (21:00)
[2018-12-16] MEDS ORDERED: Dextrose 5%-Lactated Ringers 1,000 ML IV SCH (22:30)
--- NOTE | 2018-12-16 23:11 | PCM.PN ---
- General Info Date of Service: 12/16/18 Admission Dx/Problem (Free Text): Vaginal cuff abscess Functional Status: Reports: Other Pain Score: 6 - Review of Systems HEENT: Reports: No Symptoms Pulmonary: Reports: No Symptoms Cardiovascular: Reports: No Symptoms Gastrointestinal: Reports: Abdominal Pain, Nausea, Vomiting, Other (abdominal distention) Genitourinary: Reports: Other (generalized abdominal/pelvic discomfort) Musculoskeletal: Reports: No Symptoms Skin: Reports: No Symptoms Neurological: Reports: No Symptoms Psychiatric: Reports: No Symptoms - Patient Data Vitals - Most Recent: Last Vital Signs Temp 37.4 C 12/16/18 16:21 Pulse 57 L 12/16/18 16:21 Resp 12 12/16/18 16:21 BP 108/65 12/16/18 16:21 Pulse Ox 92 L 12/16/18 16:21 Weight - Most Recent: 75.75 kg I&O - Last 24 Hours: Intake & Output 12/16/18 12/16/18 12/16/18 06:59 14:59 22:59 Intake Total 2500 180 1700 Output Total 1375 725 Balance 1125 180 975 Lab Results Last 24 Hours: Laboratory Results - last 24 hr 12/16/18 12/16/18 Range/Units 22:29 22:29 WBC 12.26 H (3.98-10.04) K/mm3 RBC 3.61 L (3.98-5.22) M/mm3 Hgb 11.6 (11.2-15.7) gm/L Hct 33.8 L (34.1-44.9) % MCV 93.6 (79.4-94.8) fl MCH 32.1 (25.6-32.2) pg MCHC 34.3 (32.2-35.5) g/dl RDW Std Deviation 38.3 (36.4-46.3) fL Plt Count 333 (182-369) K/mm3 MPV 9.4 (9.4-12.3) fl Neut % (Auto) 79.4 H (34.0-71.1) % Lymph % (Auto) 10.5 L (19.3-51.7) % [place] % (Auto) 9.4 (4.7-12.5) % Eos % (Auto) 0.1 L (0.7-5.8) Baso % (Auto) 0.1 (0.1-1.2) % Neut # (Auto) 9.74 H (1.56-6.13) K/mm3 Lymph # (Auto) 1.29 (1.18-3.74) K/mm3 [place] # (Auto) 1.15 H (0.24-0.36) K/mm3 Eos # (Auto) 0.01 L (0.04-0.36) K/mm3 Baso # (Auto) 0.01 (0.01-0.08) K/mm3 Sodium 143 (136-145) mEq/L Potassium 3.5 (3.5-5.1) mEq/L Chloride 105 (98-107) mEq/L Carbon Dioxide 29 (21-32) mEq/L Anion Gap 12.5 (5-15) BUN 14 (7-18) mg/dL Creatinine 0.7 (0.55-1.02) mg/dL Est Cr Clr Drug Dosing 90.41 mL/min Estimated GFR (MDRD) > 60 (>60) mL/min BUN/Creatinine Ratio 20.0 H (14-18) Glucose 121 H (74-106) mg/dL Calcium 8.4 L (8.5-10.1) mg/dL Magnesium 2.2 (1.8-2.4) mg/dl Total Bilirubin 0.2 (0.2-1.0) mg/dL AST 16 (15-37) U/L ALT 14 (14-59) U/L Alkaline Phosphatase 74 (46-116) U/L Total Protein 6.3 L (6.4-8.2) g/dl Albumin 2.2 L (3.4-5.0) g/dl Globulin 4.1 gm/dL Albumin/Globulin Ratio 0.5 L (1-2) [place] Results Last 24 Hours: Microbiology 12/13/18 15:34 Aerobic Blood Culture - Preliminary Blood NO GROWTH AFTER 3 DAYS Anaerobic Blood Culture - Preliminary NO GROWTH AFTER 3 DAYS 12/15/18 14:28 Gram Stain - Final Other - Vagina Anaerobic Culture - Preliminary 12/15/18 14:44 Gram Stain - Final Other - Vagina Anaerobic Culture - Preliminary NO GROWTH AFTER 1 DAY Med Orders - Current: Current Medications Meropenem/Sodium Chloride 500 (mg/ Premix) 50 mls @ 100 mls/hr IV Q6H [facility] Last Admin: 12/16/18 21:08 Dose: 100 mls/hr Dextrose/Lactated Ringer's (Dextrose 5%-Lactated Ringers) 1,000 mls @ 150 mls/ hr IV ASDIRECTED [facility] Last Admin: 12/16/18 22:50 Dose: 150 mls/hr Ibuprofen (Motrin) 600 mg PO Q4H PRN PRN Reason: Pain/Fever Last Admin: 12/16/18 14:25 Dose: 600 mg Metoclopramide HCl (Reglan) 5 mg IVPUSH Q6H PRN PRN Reason: Nausea Last Admin: 12/16/18 18:35 Dose: 5 mg Ondansetron HCl (Zofran) 4 mg IVPUSH Q4H PRN PRN Reason: Nausea Last Admin: 12/16/18 20:43 Dose: 4 mg Oxycodone/Acetaminophen (Percocet 325-5 Mg) 1 - 2 tab PO Q4H PRN PRN Reason: Pain Last Admin: 12/16/18 20:50 Dose: 1 tab Saccharomyces Boulardii (Florastor) 250 mg PO DAILY [facility] Last Admin: 12/16/18 20:50 Dose: 250 mg Simethicone (Simethicone) 80 mg PO Q8H PRN PRN Reason: Heartburn Last Admin: 12/16/18 16:55 Dose: 80 mg Zolpidem Tartrate (Ambien) 5 mg PO BEDTIME PRN PRN Reason: Sleep Discontinued Medications Acetaminophen (Tylenol) 650 mg PO Q4H PRN PRN Reason: Fever Last Admin: 12/14/18 10:24 Dose: 650 mg Bupivacaine HCl (Marcaine 0.5%) Confirm Administered Dose 30 ml .ROUTE .STK-MED ONE Stop: 12/15/18 13:45 Dexamethasone (Dexamethasone) Confirm Administered Dose 8 mg .ROUTE .STK-MED ONE Stop: 12/15/18 14:09 Diatrizoate Meglum/Diatrizoate Sod (Gastrografin 37%) 120 ml PO ONETIME ONE Stop: 12/13/18 12:46 Last Admin: 12/13/18 14:08 Dose: 90 ml Diatrizoate Meglum/Diatrizoate Sod (Gastrografin 37%) 90 ml PO ONETIME ONE Stop: 12/15/18 10:08 Last Admin: 12/15/18 11:04 Dose: 90 ml Docusate Sodium (Colace) 100 mg PO BID [facility] Last Admin: 12/15/18 08:40 Dose: 100 mg Ephedrine Sulfate (Ephedrine In Ns) Confirm Administered Dose 25 mg .ROUTE .[facility] ONE Stop: 12/15/18 14:54 Fentanyl (Sublimaze) Confirm Administered Dose 250 mcg .ROUTE .[facility] ONE Stop: 12/15/18 13:20 Fentanyl (Sublimaze) 50 mcg IVPUSH Q5M PRN PRN Reason: Pain Stop: 12/15/18 22:00 Hydromorphone HCl (Dilaudid) 0.5 mg IVPUSH Q2H PRN PRN Reason: Pain Last Admin: 12/14/18 13:19 Dose: 0.5 mg Hydromorphone HCl (Dilaudid) 0.5 mg IVPUSH Q10M PRN PRN Reason: Pain (severe 7-10) Stop: 12/15/18 22:00 Sodium Chloride (Normal Saline) 1,000 mls @ 999 mls/hr IV ONETIME ONE Stop: 12/13/18 13:30 Last Admin: 12/13/18 12:49 Dose: 999 mls/hr Dextrose/Lactated Ringer's (Dextrose 5%-Lactated Ringers) 1,000 mls @ 150 mls/ hr IV ASDIRECTED [facility] Last Admin: 12/14/18 03:56 Dose: 150 mls/hr Meropenem/Sodium Chloride 500 (mg/ Premix) 50 mls @ 100 mls/hr IV Q6H [facility] Last Admin: 12/15/18 16:39 Dose: 100 mls/hr Dextrose/Lactated Ringer's (Dextrose 5%-Lactated Ringers) 1,000 mls @ 100 mls/ hr IV ASDIRECTED [facility] Lidocaine HCl (Xylocaine-Mpf 1%) Confirm Administered Dose 4 mls @ as directed .ROUTE .[facility] ONE Stop: 12/15/18 13:19 Lactated Ringer's (Ringers, Lactated) 1,000 mls @ 125 mls/hr IV ASDIRECTED [facility] Last Admin: 12/15/18 16:09 Dose: 125 mls/hr Lactated Ringer's (Ringers, Lactated) Confirm Administered Dose 1,000 mls @ as directed .ROUTE .STK-MED ONE Stop: 12/15/18 15:02 Sodium Chloride (Normal Saline) 1,000 mls @ 125 mls/hr IV ASDIRECTED [facility] Last Admin: 12/16/18 06:14 Dose: 125 mls/hr Meropenem 1 gm/ Sodium (Chloride) 100 mls @ 200 mls/hr IV Q8H [facility] Iopamidol (Isovue-300 (61%)) 100 ml IVPUSH ONETIME ONE Stop: 12/13/18 12:46 Last Admin: 12/13/18 14:07 Dose: 100 ml Iopamidol (Isovue-300 (61%)) 100 ml IVPUSH ONETIME ONE Stop: 12/15/18 10:08 Last Admin: 12/15/18 11:04 Dose: 100 ml Ketorolac Tromethamine (Toradol) Confirm Administered Dose 30 mg .ROUTE .STK- MED ONE Stop: 12/15/18 13:29 Lidocaine/Epinephrine (Xylocaine 1% With Epinephrine 1:100,000) Confirm Administered Dose 20 ml .ROUTE .STK-MED ONE Stop: 12/15/18 13:43 Lidocaine/Sodium Bicarbonate (Buffered Lidocaine 1% In Ns 8.4%) 0.1 ml IDERM ONETIME ONE Stop: 12/15/18 14:18 Last Admin: 12/15/18 17:46 Dose: Not Given Metoclopramide HCl (Reglan) Confirm Administered Dose 10 mg .ROUTE .STK-MED ONE Stop: 12/16/18 18:34 Last Admin: 12/16/18 18:44 Dose: Not Given Midazolam HCl (Versed 1 Mg/Ml) Confirm Administered Dose 2 mg .ROUTE .STK-MED ONE Stop: 12/15/18 13:20 Miscellaneous Information (Remove Patch) 1 ea TRDERM ONETIME ONE Stop: 12/18/18 14:01 Ondansetron HCl (Zofran) 4 mg IVPUSH Q4H PRN PRN Reason: Nausea Last Admin: 12/15/18 10:02 Dose: 4 mg Ondansetron HCl (Zofran Odt) 4 mg PO Q6H PRN PRN Reason: Nausea/Vomiting Last Admin: 12/13/18 12:04 Dose: 4 mg Ondansetron HCl (Zofran) Confirm Administered Dose 4 mg .ROUTE .STK-MED ONE Stop: 12/15/18 13:19 Ondansetron HCl (Zofran) 4 mg IVPUSH ONETIME PRN PRN Reason: Nausea/Vomiting Stop: 12/15/18 22:00 Ondansetron HCl (Zofran) 4 mg IVPUSH Q8H PRN PRN Reason: Nausea Last Admin: 12/16/18 16:55 Dose: 4 mg Propofol (Diprivan 20 Ml) Confirm Administered Dose 200 mg .ROUTE .STK-MED ONE Stop: 12/15/18 13:19 Propofol (Diprivan 20 Ml) Confirm Administered Dose 200 mg .ROUTE .STK-MED ONE Stop: 12/15/18 14:10 Propofol (Diprivan 20 Ml) Confirm Administered Dose 200 mg .ROUTE .STK-MED ONE Stop: 12/15/18 14:10 Scopolamine (Transderm-Scop) 1.5 mg TRDERM ONETIME ONE Stop: 12/15/18 13:33 Last Admin: 12/15/18 14:15 Dose: 1.5 mg Sodium Chloride (Saline Flush) 10 ml FLUSH ONETIME PRN PRN Reason: IV FLUSH Stop: 12/13/18 16:00 Last Admin: 12/13/18 14:08 Dose: 10 ml Sodium Chloride (Saline Flush) 10 ml FLUSH ONETIME ONE Stop: 12/15/18 10:08 Last Admin: 12/15/18 11:04 Dose: 10 ml Sodium Chloride (Normal Saline) Confirm Administered Dose 50 ml .ROUTE .STK-MED ONE Stop: 12/15/18 13:46 Succinylcholine Chloride (Succinylcholine In Ns Pf) Confirm Administered Dose 100 mg .ROUTE .STK-MED ONE Stop: 12/15/18 13:40 Zolpidem Tartrate (Ambien) 5 mg PO BEDTIME PRN PRN Reason: Sleep - Exam General: Alert, Oriented Lungs: Clear to Auscultation, Normal Respiratory Effort Cardiovascular: Regular Rate, Regular Rhythm GI/Abdominal Exam: Distended (mildly distended/tympanic), Tender, Other (Bowel sounds present but decreased from earlier in the day) (Female) Exam: Other (Vaginal malecot catheter still in place) Extremities: Normal Inspection Psy/Mental Status: Alert Physical Findings Comments:: Radiology evaluation: Upright of chest, abdomen and supine of abdomen show atelectasis, air/fluid levels in the bowel and questionable free air in the peritoneal cavity. Recommendation is for CT of Abdomen and pelvis. CBC is normal with exception of WBC of 12.26 and 79.4 neuts. CMP is relatively normal or unchanged from previous evaluation. Cr-0.7. Magnesium is 2.2. - Problem List Review Problem List Initiated/Reviewed/Updated: Yes - My Orders Last 24 Hours: My Active Orders 12/15/18 22:00 Meropenem Premix [Meropenem] 500 mg Premix Bag 1 bag IV Q6H 12/16/18 00:43 Patient Status [ADT] Routine 12/16/18 08:20 Convert IV to Saline Lock [OM.PC] Routine 12/16/18 16:46 Simethicone 80 mg PO Q8H PRN 12/16/18 17:52 Ondansetron [Zofran] 4 mg IVPUSH Q4H PRN 12/16/18 18:28 Metoclopramide [Reglan] 5 mg IVPUSH Q6H PRN 12/16/18 21:00 Saccharomyces Boulardii [Florastor] 250 mg PO DAILY 12/16/18 22:19 Abdomen Series w Chest 1V [CR] Stat 12/16/18 22:30 Dextrose 5%-Lactated Ringers 1,000 ml IV ASDIRECTED 12/17/18 08:00 Abdomen Pelvis w Cont [CT] Routine 12/17/18 Breakfast Clear Liquid Diet [DIET] - Assessment Assessment:: 1. Status post drainage of a vaginal cuff abscess with placement of a malecot catheter 2. Moderate nausea with emesis. Moderate distension of abdomen with typani 3. Afebrile x 72 hours on Merepenum for pelvic infection. Pt is allergic to PCNs and Cephalosporins. 4. Xrays of abdomen and pelvis show atelectasis, air-fluid levels in bowel and questionable free air in peritoneal cavity - Plan Plan:: 1. CT of abdomen and pelvis to evaluate questionable free air in the peritoneal cavity. 2. IV hydration with D5LR at 125 cc/hour 3. Reglan IV for nausea
--- NOTE | 2018-12-17 00:28 | PCM.SN ---
- Free Text/Narrative Note: Follow-up of CT evaluation of abdomen and pelvis. Results reviewed with radiologist on line. Impression is follows: 1. Free peritoneal Air. Although this may be postsurgical findings at the vaginal cuff catheter enter the peritoneal cavity. Perforated viscous cannot be ruled out. Please correlate. 2. Distended loops of large and small bowel including the stomach suggestive of an ileus 3. Small bilateral pleural effusions. Have discussed results with Dr. Rojo surgeon on-call. He will come in and examine the patient and review of radiologic studies and labs.
[2018-12-17] MEDS ORDERED: Morphine 2 MG/ML Syringe ONE (01:52)
--- NOTE | 2018-12-17 01:55 | PCM.CONS ---
H&P History of Present Illness - General Date of Service: 12/17/18 Admit Problem/Dx: Vaginal cuff abscess Source of Information: Patient, Old Records, Provider History Limitations: Reports: No Limitations - History of Present Illness Initial Comments - Free Text/Narative: 43 yo female, admitted by Dr. Blas (OBGYN) on 13Dec2018 for vaginal cuff abscess. She underwent transvaginal hysterectomy on 24Nov2018 and was discharged home. She was admitted with worsening pain/fevers and CT scan demonstrated a vaginal cuff abscess. She was given IV meropenem. A F/U CT scan was performed, which showed an increase in the size of the abscess (from 4 to 8 cm). As a result, Dr. Blas performed exam under anesthesia, with opening of the vaginal cuff and insertion of a Malecot drain, now POD#1. In the past several hours, the patient has had worsening abdominal pain, distention, nausea , and vomiting. I was consulted for further evaluation. The patient reports pain throughout her abdomen, rated 7/10. She had a watery bowel movement this morning. Denies flatus. She has been voiding spontaneously, at least 50 cc/hr during the evening. Denies dysuria. Denies hematuria. Vitals signs have been normal, without fever or tachycardia. WBC has increased from 9k this morning to 12k. The Malecot drain initially drained some purulent fluid, 150 cc in the first 12 hours, with decreasing volume. But this evening, the output volume has increased significantly, about 100 cc/hr for the past several hours. Abdomen Pain Score (Numeric/FACES): 5 - Related Data Allergies/Adverse Reactions: Allergies Allergy/AdvReac Type Severity Reaction Status Date / Time cefaclor [From [facility]] Allergy Other Verified 11/24/18 07:40 Penicillins Allergy Hives Verified 11/24/18 07:40 Home Medications: Home Meds Acetaminophen/oxyCODONE [Percocet 325-5 MG] 2 tab PO Q4H PRN tablet 11/24/18 [ Rx] Ibuprofen 600 mg PO Q4HR PRN #30 tablet 11/24/18 [Rx] Past Medical History HEENT History: Reports: None Cardiovascular History: Reports: None Respiratory History: Reports: None Gastrointestinal History: Reports: None Other Gastrointestinal History: Right upper quadrant abdominal pain Other Genitourinary History: Pelvic pain [employer] History: Reports: Endometrial Ablation, , Other (See Below) Other OB/BYN History: Hysteroscopy Musculoskeletal History: Reports: None Neurological History: Reports: None Psychiatric History: Reports: None Endocrine/Metabolic History: Reports: None Hematologic History: Reports: None Immunologic History: Reports: None Oncologic (Cancer) History: Reports: None Dermatologic History: Reports: Other (See Below) Other Dermatologic History: Hyperhidrosis of axilla - Infectious Disease History Infectious Disease History: Reports: Chicken Pox - Past Surgical History Head Surgeries/Procedures: Reports: None HEENT Surgical History: Reports: LASIK Cardiovascular Surgical History: Reports: None Respiratory Surgical History: Reports: None Female Surgical History: Reports: Hysterectomy (transvaginal hysterectomy ( Oct 2018)), Other (See Below) Other Female Surgeries/Procedures: ablation Endocrine Surgical History: Reports: None Neurological Surgical History: Reports: Other (See Below) Other Neurological Surgeries/Procedures: Cervical surgery Musculoskeletal Surgical History: Reports: None Oncologic Surgical History: Reports: None Dermatological Surgical History: Reports: None Social & Family History - Family History Family Medical History: Noncontributory - Tobacco Use Smoking Status *Q: Former Smoker Years of Tobacco use: 15 Used Tobacco, but Quit: Yes Month/Year Tobacco Last Used: 2016 Second Hand Smoke Exposure: No - Caffeine Use Caffeine Use: Reports: Coffee - Alcohol Use Days Per Week of Alcohol Use: 3 Number of Drinks Per Day: 1 Total Drinks Per Week: 3 - Recreational Drug Use Recreational Drug Use: No H&P Review of Systems - Review of Systems: Review Of Systems: ROS reveals no pertinent complaints other than HPI. Exam - Exam Exam: See Below - Vital Signs Vital Signs: Last Vital Signs Temp 37.4 C 12/16/18 16:21 Pulse 57 L 12/16/18 16:21 Resp 12 12/16/18 16:21 BP 108/65 12/16/18 16:21 Pulse Ox 92 L 12/16/18 16:21 Weight: 75.75 kg - Exam General: Alert, Oriented, Cooperative GI/Abdominal Exam: Distended, Tender (throughout the abdomen, with percussion tenderness) (Female) Exam: Other (Malecot drain in place to the vaginal canal. Output is clear yellow with some residue. 200 cc in the bag. ) Extremities: Normal Inspection Psychiatric: Alert, Normal Affect, Normal Mood - Patient Data Lab Results Last 24 hrs: Laboratory Results - last 24 hr 12/16/18 12/16/18 Range/Units 22:29 22:29 WBC 12.26 H (3.98-10.04) K/mm3 RBC 3.61 L (3.98-5.22) M/mm3 Hgb 11.6 (11.2-15.7) gm/L Hct 33.8 L (34.1-44.9) % MCV 93.6 (79.4-94.8) fl MCH 32.1 (25.6-32.2) pg MCHC 34.3 (32.2-35.5) g/dl RDW Std Deviation 38.3 (36.4-46.3) fL Plt Count 333 (182-369) K/mm3 MPV 9.4 (9.4-12.3) fl Neut % (Auto) 79.4 H (34.0-71.1) % Lymph % (Auto) 10.5 L (19.3-51.7) % [place] % (Auto) 9.4 (4.7-12.5) % Eos % (Auto) 0.1 L (0.7-5.8) Baso % (Auto) 0.1 (0.1-1.2) % Neut # (Auto) 9.74 H (1.56-6.13) K/mm3 Lymph # (Auto) 1.29 (1.18-3.74) K/mm3 [place] # (Auto) 1.15 H (0.24-0.36) K/mm3 Eos # (Auto) 0.01 L (0.04-0.36) K/mm3 Baso # (Auto) 0.01 (0.01-0.08) K/mm3 Sodium 143 (136-145) mEq/L Potassium 3.5 (3.5-5.1) mEq/L Chloride 105 (98-107) mEq/L Carbon Dioxide 29 (21-32) mEq/L Anion Gap 12.5 (5-15) BUN 14 (7-18) mg/dL Creatinine 0.7 (0.55-1.02) mg/dL Est Cr Clr Drug Dosing 90.41 mL/min Estimated GFR (MDRD) > 60 (>60) mL/min BUN/Creatinine Ratio 20.0 H (14-18) Glucose 121 H (74-106) mg/dL Calcium 8.4 L (8.5-10.1) mg/dL Magnesium 2.2 (1.8-2.4) mg/dl Total Bilirubin 0.2 (0.2-1.0) mg/dL AST 16 (15-37) U/L ALT 14 (14-59) U/L Alkaline Phosphatase 74 (46-116) U/L Total Protein 6.3 L (6.4-8.2) g/dl Albumin 2.2 L (3.4-5.0) g/dl Globulin 4.1 gm/dL Albumin/Globulin Ratio 0.5 L (1-2) Result Diagrams: 12/16/18 22:29 12/16/18 22:29 [place] Results Last 24 hrs: Microbiology 12/13/18 15:34 Aerobic Blood Culture - Preliminary Blood NO GROWTH AFTER 3 DAYS Anaerobic Blood Culture - Preliminary NO GROWTH AFTER 3 DAYS 12/15/18 14:28 Gram Stain - Final Other - Vagina Anaerobic Culture - Preliminary 12/15/18 14:44 Gram Stain - Final Other - Vagina Anaerobic Culture - Preliminary NO GROWTH AFTER 1 DAY Consult PN Assessment/Plan Procedures: Procedures ASSAY OF AMYLASE (08/17/17) ASSAY OF CREATININE (11/24/18) ASSAY OF LIPASE (08/17/17) BLOOD TYPING SEROLOGIC ABO (11/24/18) BLOOD TYPING SEROLOGIC RH(D) (11/24/18) BREAST TOMOSYNTHESIS BI (11/03/18) COMPLETE CBC W/AUTO DIFF WBC (12/05/18) COMPREHEN METABOLIC PANEL (12/05/18) CT ABD & PELV W/CONTRAST (12/08/18) LAPARO-VAG HYST INCL T/O (11/24/18) MRI LUMBAR SPINE W/O DYE (08/26/17) RBC ANTIBODY SCREEN (11/24/18) ROUTINE VENIPUNCTURE (12/05/18) SCR MAMMO BI INCL CAD (11/03/18) TRANSVAGINAL US NON-OB (10/16/18) URINALYSIS AUTO W/SCOPE (12/05/18) URINE CULTURE/COLONY COUNT (12/05/18) URINE TEST (11/24/18) X-RAY EXAM L-2 SPINE 4/>VWS (08/26/17) X-RAY EXAM NECK SPINE 2-3 VW (11/17/15) X-RAY EXAM NECK SPINE 6/>VWS (05/13/15) (1) Ileus SNOMED Code(s): 004337095 Code(s): K56.7 - ILEUS, UNSPECIFIED Current Visit: Yes Problem List Initiated/Reviewed/Updated: Yes My Orders Last 24 Hours: My Active Orders 12/17/18 01:20 CREATININE,BODY FLUID [BF] Stat Plan: 43 yo female, s/p transvaginal hysterectomy (Oct 2018), complicated by vaginal cuff abscess, requiring readmission and reoperation, HD#5, POD#2 s/p exam under anesthesia, opening vaginal cuff and placement of Malecot drain, now with abdominal pain/distention, and imaging consistent with ileus and unusual increase in the Malecot drain output. Unclear where the fluid is coming from - bowel fluid vs urine. CT scan images and radiology report were reviewed. Small amount of free air noted around the liver. Malecot drain in place at area of vaginal cuff. Dilated loops of small bowel with air fluid levels. Concern for potential bowel injury vs injury to the urinary system. - Unable to send drain fluid for creatine level (since send out lab). - Recommend placement of NG tube for proximal decompression. - Patient will benefit from multidisciplinary team approach. Recommend transfer to higher level fo care with OBGYN, General Surgery, and Urology services. - Discussed patient case by phone with CALLIE Cottrell on-call [employer] Engineer (Dr. Morris) and on-call General Surgeon (Dr. Gong), with Dr. Blas present. Jad Mcdaniel M.D (Siri)., F.A.C.S. General Surgery Pager: [phone]
[2018-12-17] MEDS: Morphine 4 MG/ML Syringe IVPUSH PRN ×2 (02:01→03:43)
[2018-12-17] MEDS: Metoclopramide 10 MG/2 ML SDV IVPUSH PRN (02:15)
--- NOTE | 2018-12-17 03:06 | PCM.DCSUM1 ---
Discharge Summary - Hospital Course Free Text/Narrative:: Because 43-year-old 2 para 2001 white female admitted on 12/13/2018 with complaints of fever, chills, abdominal pain. She was admitted and started on antibiotics. Initial evaluation showed a white blood count of 9000 with a mild left shift. Cultures were obtained. Comprehensive metabolic profile and CBC otherwise were essentially normal. Urinalysis showed some white blood cells and RBCs. Culture of the urine grew out group B strep in small numbers. Patient had been treated with Macrobid initially until culture results came back indicating to Levaquin. She was started on Levaquin. A CT evaluation with contrast was done on 12/08/2018 and urinary tract was felt to be normal with the exception of suboptimal visualization of the upper pole of the right kidney. Patient has severe allergy to penicillins and cephalosporins. On admission the patient was started on meropenem 500 mg IV every 6 hours. Rosina's fever broke and for the next 72 hours she has been afebrile. CT evaluation of the urinary tract, pelvis and abdomen on admission was read as normal with the exception of 4.3 cm-largest diameter-structure in the area of the vagina felt to possibly be a vaginal cuff abscess. She was continued on antibiotics improvement in her pain, fever and infection symptoms. Repeat CT done 2 days later and follow-up of the abscess then showed that the abscess cavity increased to 8.1 cm in greatest dimension. It was at that time the decision was made to proceed to vaginal exam under anesthesia with possible drainage of the vaginal cuff abscess. Patient was taken to surgery on 2018. Vaginal evaluation showed a masslike effect in the area of the vaginal cuff. This correlated with the CT findings. The vaginal cuff sutures were taken down in the mid incision and an area of abscess was found to be pointing. A 60 mL syringe with an 18-gauge spinal needle was placed in this area and purulent abscess fluid was removed. Decision was made to open this large enough to place a 28 Arabic Malecot catheter. Area of the abscess was irrigated repeatedly with a total of about 500 mL of normal saline. The Malecot catheter was placed and a [id number] suture was placed on each side to hold it in place. It was attached to closed drainage system. The patient immediately got relief from this. On the evening after surgery she said she felt better than she had for the last 3 days. Her vital signs remained stable and she was afebrile. Her output was good and patient had a couple loose stools. On the morning of 12/16/2018 patient continued do well and her exam was relatively unremarkable. Drainage from the vaginal cuff catheter appeared to be decreasing. during the course of the day of 12/16/2018 patient however began getting distended and findings appeared to be consistent with ileus. Continues to have approximately 800 mL of urine output during the course of the day shift. The discharge from the Malecot, vaginal drainage tube appeared to be increased. It seemed more than expected from an abscess site only. Her nausea and emesis patient is not able to keep food down and eventually not able to keep fluids down either. Evaluation clinically showed her to have the above findings. The laboratory testing consistent CMP and CBC was relatively normal but the white count did increase from 9.96 to 12.26. Mildly increased neutrophils were also seen. Blood cultures from their first evaluation and returned negative 2 after 3 days. Urine culture showed only group B strep positive organisms. Vaginal discharge culture results at day 1 are negative. Gram stain of the vaginal fluid at the time of drainage of the cuff abscess showed increased white blood cells and red blood cells. X-rays of the chest and abdomen and a upright position shows a small amount of free air. Therefore a CT was again performed of the abdomen and pelvis. Results were reviewed with radiologist on line. Impression is follows: 1. Free peritoneal Air. Although this may be postsurgical findings at the vaginal cuff catheter enter the peritoneal cavity. Perforated viscous cannot be ruled out. Please correlate. 2. Distended loops of large and small bowel including the stomach suggestive of an ileus 3. Small bilateral pleural effusions. , general surgeon, was consulted at this time and saw the patient. He felt she had some irritation medial symptoms, findings consistent with ileus and was concerned about increased volume and the appearance of the vaginal Malecot drainage tube. The recommendation was for patient to be transferred to a care facility with appropriate specialty services to evaluate for other potential bladder injury, bowel injury or other concerns. The patient was in agreement to transfer her to [facility]. Patient was transferred to [facility]. Accepting/Receiving physician is Dr. Christian Gong, general surgeon. Also discussed the case with Dr. Malathi hopkins, [employer] physician city controller. Diagnosis: Stroke: No - Discharge Data Discharge Date: 12/17/18 Discharge Disposition: Home, Self-Care 01 Condition: Good - Patient Summary/Data Operative Procedure(s) Performed: Exam under anesthesia, drainage of vaginal cuff abscess, placement of a Malecot catheter - Patient Instructions Diet: NPO Activity: As Tolerated Showering/Bathing: March Shower - Discharge Plan Home Medications: Home Meds Acetaminophen/oxyCODONE [Percocet 325-5 MG] 2 tab PO Q4H PRN tablet 11/24/18 [ Rx] Ibuprofen 600 mg PO Q4HR PRN #30 tablet 11/24/18 [Rx] Referrals: Christian Gong MD [Ordering Only Provider] - - Discharge Summary/Plan Comment DC Time >30 min.: No Discharge Summary/Plan Comment: 1. Transfer care by ambulance to Dr. Christian Gong, general surgery at [facility]. The transfer, its risks, benefits and possible deterioration patient have been discussed with patient. Chance of this is unlikely and transferred to the care were higher level of service available as felt necessary at this time. 2. We'll place an NG tube prior to transfer 3. Morphine 4 mg IV every 8 hours when necessary pain. 4. Transfer all pertinent records and images with patient. Images are on a disc.4. - Patient Data Vitals - Most Recent: Last Vital Signs Temp 37.4 C 12/16/18 16:21 Pulse 57 L 12/16/18 16:21 Resp 12 12/16/18 16:21 BP 108/65 12/16/18 16:21 Pulse Ox 92 L 12/16/18 16:21 Weight - Most Recent: 75.75 kg I&O - Last 24 hours: Intake & Output 12/16/18 12/16/18 12/17/18 14:59 22:59 06:59 Intake Total 180 1700 Output Total 725 Balance 180 975 Lab Results - Last 24 hrs: Laboratory Results - last 24 hr 12/16/18 12/16/18 Range/Units 22:29 22:29 WBC 12.26 H (3.98-10.04) K/mm3 RBC 3.61 L (3.98-5.22) M/mm3 Hgb 11.6 (11.2-15.7) gm/L Hct 33.8 L (34.1-44.9) % MCV 93.6 (79.4-94.8) fl MCH 32.1 (25.6-32.2) pg MCHC 34.3 (32.2-35.5) g/dl RDW Std Deviation 38.3 (36.4-46.3) fL Plt Count 333 (182-369) K/mm3 MPV 9.4 (9.4-12.3) fl Neut % (Auto) 79.4 H (34.0-71.1) % Lymph % (Auto) 10.5 L (19.3-51.7) % [place] % (Auto) 9.4 (4.7-12.5) % Eos % (Auto) 0.1 L (0.7-5.8) Baso % (Auto) 0.1 (0.1-1.2) % Neut # (Auto) 9.74 H (1.56-6.13) K/mm3 Lymph # (Auto) 1.29 (1.18-3.74) K/mm3 [place] # (Auto) 1.15 H (0.24-0.36) K/mm3 Eos # (Auto) 0.01 L (0.04-0.36) K/mm3 Baso # (Auto) 0.01 (0.01-0.08) K/mm3 Sodium 143 (136-145) mEq/L Potassium 3.5 (3.5-5.1) mEq/L Chloride 105 (98-107) mEq/L Carbon Dioxide 29 (21-32) mEq/L Anion Gap 12.5 (5-15) BUN 14 (7-18) mg/dL Creatinine 0.7 (0.55-1.02) mg/dL Est Cr Clr Drug Dosing 90.41 mL/min Estimated GFR (MDRD) > 60 (>60) mL/min BUN/Creatinine Ratio 20.0 H (14-18) Glucose 121 H (74-106) mg/dL Calcium 8.4 L (8.5-10.1) mg/dL Magnesium 2.2 (1.8-2.4) mg/dl Total Bilirubin 0.2 (0.2-1.0) mg/dL AST 16 (15-37) U/L ALT 14 (14-59) U/L Alkaline Phosphatase 74 (46-116) U/L Total Protein 6.3 L (6.4-8.2) g/dl Albumin 2.2 L (3.4-5.0) g/dl Globulin 4.1 gm/dL Albumin/Globulin Ratio 0.5 L (1-2) TYRELL Results - Last 24 hrs: Microbiology 12/13/18 15:34 Aerobic Blood Culture - Preliminary Blood NO GROWTH AFTER 3 DAYS Anaerobic Blood Culture - Preliminary NO GROWTH AFTER 3 DAYS 12/15/18 14:28 Gram Stain - Final Other - Vagina Anaerobic Culture - Preliminary 12/15/18 14:44 Gram Stain - Final Other - Vagina Anaerobic Culture - Preliminary NO GROWTH AFTER 1 DAY Med Orders - Current: Current Medications Meropenem/Sodium Chloride 500 (mg/ Premix) 50 mls @ 100 mls/hr IV Q6H [facility] Last Admin: 12/16/18 21:08 Dose: 100 mls/hr Dextrose/Lactated Ringer's (Dextrose 5%-Lactated Ringers) 1,000 mls @ 150 mls/ hr IV ASDIRECTED [facility] Last Admin: 12/16/18 22:50 Dose: 150 mls/hr Ibuprofen (Motrin) 600 mg PO Q4H PRN PRN Reason: Pain/Fever Last Admin: 12/16/18 14:25 Dose: 600 mg Metoclopramide HCl (Reglan) 5 mg IVPUSH Q6H PRN PRN Reason: Nausea Last Admin: 12/17/18 02:15 Dose: 5 mg Morphine Sulfate (Morphine) 4 mg IVPUSH Q2H PRN PRN Reason: Pain Last Admin: 12/17/18 02:01 Dose: 4 mg Ondansetron HCl (Zofran) 4 mg IVPUSH Q4H PRN PRN Reason: Nausea Last Admin: 12/16/18 20:43 Dose: 4 mg Oxycodone/Acetaminophen (Percocet 325-5 Mg) 1 - 2 tab PO Q4H PRN PRN Reason: Pain Last Admin: 12/16/18 20:50 Dose: 1 tab Saccharomyces Boulardii (Florastor) 250 mg PO DAILY [facility] Last Admin: 12/16/18 20:50 Dose: 250 mg Simethicone (Simethicone) 80 mg PO Q8H PRN PRN Reason: Heartburn Last Admin: 12/16/18 16:55 Dose: 80 mg Zolpidem Tartrate (Ambien) 5 mg PO BEDTIME PRN PRN Reason: Sleep Discontinued Medications Acetaminophen (Tylenol) 650 mg PO Q4H PRN PRN Reason: Fever Last Admin: 12/14/18 10:24 Dose: 650 mg Bupivacaine HCl (Marcaine 0.5%) Confirm Administered Dose 30 ml .ROUTE .STK-MED ONE Stop: 12/15/18 13:45 Dexamethasone (Dexamethasone) Confirm Administered Dose 8 mg .ROUTE .STK-MED ONE Stop: 12/15/18 14:09 Diatrizoate Meglum/Diatrizoate Sod (Gastrografin 37%) 120 ml PO ONETIME ONE Stop: 12/13/18 12:46 Last Admin: 12/13/18 14:08 Dose: 90 ml Diatrizoate Meglum/Diatrizoate Sod (Gastrografin 37%) 90 ml PO ONETIME ONE Stop: 12/15/18 10:08 Last Admin: 12/15/18 11:04 Dose: 90 ml Docusate Sodium (Colace) 100 mg PO BID [facility] Last Admin: 12/15/18 08:40 Dose: 100 mg Ephedrine Sulfate (Ephedrine In Ns) Confirm Administered Dose 25 mg .ROUTE .STK- MED ONE Stop: 12/15/18 14:54 Fentanyl (Sublimaze) Confirm Administered Dose 250 mcg .ROUTE .STK-MED ONE Stop: 12/15/18 13:20 Fentanyl (Sublimaze) 50 mcg IVPUSH Q5M PRN PRN Reason: Pain Stop: 12/15/18 22:00 Hydromorphone HCl (Dilaudid) 0.5 mg IVPUSH Q2H PRN PRN Reason: Pain Last Admin: 12/14/18 13:19 Dose: 0.5 mg Hydromorphone HCl (Dilaudid) 0.5 mg IVPUSH Q10M PRN PRN Reason: Pain (severe 7-10) Stop: 12/15/18 22:00 Sodium Chloride (Normal Saline) 1,000 mls @ 999 mls/hr IV ONETIME ONE Stop: 12/13/18 13:30 Last Admin: 12/13/18 12:49 Dose: 999 mls/hr Dextrose/Lactated Ringer's (Dextrose 5%-Lactated Ringers) 1,000 mls @ 150 mls/ hr IV ASDIRECTED [facility] Last Admin: 12/14/18 03:56 Dose: 150 mls/hr Meropenem/Sodium Chloride 500 (mg/ Premix) 50 mls @ 100 mls/hr IV Q6H [facility] Last Admin: 12/15/18 16:39 Dose: 100 mls/hr Dextrose/Lactated Ringer's (Dextrose 5%-Lactated Ringers) 1,000 mls @ 100 mls/ hr IV ASDIRECTED [facility] Lidocaine HCl (Xylocaine-Mpf 1%) Confirm Administered Dose 4 mls @ as directed .ROUTE .STK-MED ONE Stop: 12/15/18 13:19 Lactated Ringer's (Ringers, Lactated) 1,000 mls @ 125 mls/hr IV ASDIRECTED [facility] Last Admin: 12/15/18 16:09 Dose: 125 mls/hr Lactated Ringer's (Ringers, Lactated) Confirm Administered Dose 1,000 mls @ as directed .ROUTE .STK-MED ONE Stop: 12/15/18 15:02 Sodium Chloride (Normal Saline) 1,000 mls @ 125 mls/hr IV ASDIRECTED [facility] Last Admin: 12/16/18 06:14 Dose: 125 mls/hr Meropenem 1 gm/ Sodium (Chloride) 100 mls @ 200 mls/hr IV Q8H [facility] Iopamidol (Isovue-300 (61%)) 100 ml IVPUSH ONETIME ONE Stop: 12/13/18 12:46 Last Admin: 12/13/18 14:07 Dose: 100 ml Iopamidol (Isovue-300 (61%)) 100 ml IVPUSH ONETIME ONE Stop: 12/15/18 10:08 Last Admin: 12/15/18 11:04 Dose: 100 ml Ketorolac Tromethamine (Toradol) Confirm Administered Dose 30 mg .ROUTE .STK- MED ONE Stop: 12/15/18 13:29 Lidocaine/Epinephrine (Xylocaine 1% With Epinephrine 1:100,000) Confirm Administered Dose 20 ml .ROUTE .STK-MED ONE Stop: 12/15/18 13:43 Lidocaine/Sodium Bicarbonate (Buffered Lidocaine 1% In Ns 8.4%) 0.1 ml IDERM ONETIME ONE Stop: 12/15/18 14:18 Last Admin: 12/15/18 17:46 Dose: Not Given Metoclopramide HCl (Reglan) Confirm Administered Dose 10 mg .ROUTE .STK-MED ONE Stop: 12/16/18 18:34 Last Admin: 12/16/18 18:44 Dose: Not Given Midazolam HCl (Versed 1 Mg/Ml) Confirm Administered Dose 2 mg .ROUTE .STK-MED ONE Stop: 12/15/18 13:20 Miscellaneous Information (Remove Patch) 1 ea TRDERM ONETIME ONE Stop: 12/18/18 14:01 Morphine Sulfate (Morphine) Confirm Administered Dose 4 mg .ROUTE .STK-MED ONE Stop: 12/17/18 01:53 Ondansetron HCl (Zofran) 4 mg IVPUSH Q4H PRN PRN Reason: Nausea Last Admin: 12/15/18 10:02 Dose: 4 mg Ondansetron HCl (Zofran Odt) 4 mg PO Q6H PRN PRN Reason: Nausea/Vomiting Last Admin: 12/13/18 12:04 Dose: 4 mg Ondansetron HCl (Zofran) Confirm Administered Dose 4 mg .ROUTE .STK-MED ONE Stop: 12/15/18 13:19 Ondansetron HCl (Zofran) 4 mg IVPUSH ONETIME PRN PRN Reason: Nausea/Vomiting Stop: 12/15/18 22:00 Ondansetron HCl (Zofran) 4 mg IVPUSH Q8H PRN PRN Reason: Nausea Last Admin: 12/16/18 16:55 Dose: 4 mg Propofol (Diprivan 20 Ml) Confirm Administered Dose 200 mg .ROUTE .STK-MED ONE Stop: 12/15/18 13:19 Propofol (Diprivan 20 Ml) Confirm Administered Dose 200 mg .ROUTE .STK-MED ONE Stop: 12/15/18 14:10 Propofol (Diprivan 20 Ml) Confirm Administered Dose 200 mg .ROUTE .STK-MED ONE Stop: 12/15/18 14:10 Scopolamine (Transderm-Scop) 1.5 mg TRDERM ONETIME ONE Stop: 12/15/18 13:33 Last Admin: 12/15/18 14:15 Dose: 1.5 mg Sodium Chloride (Saline Flush) 10 ml FLUSH ONETIME PRN PRN Reason: IV FLUSH Stop: 12/13/18 16:00 Last Admin: 12/13/18 14:08 Dose: 10 ml Sodium Chloride (Saline Flush) 10 ml FLUSH ONETIME ONE Stop: 12/15/18 10:08 Last Admin: 12/15/18 11:04 Dose: 10 ml Sodium Chloride (Normal Saline) Confirm Administered Dose 50 ml .ROUTE .STK-MED ONE Stop: 12/15/18 13:46 Succinylcholine Chloride (Succinylcholine In Ns Pf) Confirm Administered Dose 100 mg .ROUTE .STK-MED ONE Stop: 12/15/18 13:40 Zolpidem Tartrate (Ambien) 5 mg PO BEDTIME PRN PRN Reason: Sleep
[2018-12-17] MEDS: Meropenem Premix 500 MG in Premix Bag 1 BAG IV SCH (03:20)
--- NOTE | 2018-12-17 08:44 | CR ---
Abdominal series: Supine and upright views of the abdomen were obtained as well as frontal view of the chest. Comparison: No prior chest x-ray or abdominal plain film study. Small amount of free air is noted beneath the hemidiaphragm with right basilar atelectasis. Mild left basilar atelectasis is noted. Dilated small bowel loops are seen as well as air within the right colon with air-fluid levels compatible with prominent ileus. Bony structures appear within normal limits for the patient's age. Catheter overlying the pelvis presumably due to drainage catheter. Impression: 1. Prominent ileus as described above. Bibasiliar atelectasis. 2. Small amount of free air compatible with recent surgery. 3. Drainage catheter overlying the pelvis. Diagnostic code #3
--- NOTE | 2018-12-17 17:29 | CT ---
CT abdomen and pelvis Technique: Multiple axial sections were obtained from above the dome of the diaphragm inferiorly through the pubic symphysis. Intravenous and oral contrast not given. There is some oral contrast within the colon from previous CT exam of 12/15/18. Findings: Small amount of free air is identified. Small bilateral pleural effusions are seen increased in size on the left side from prior exam. Bibasilar atelectasis is also noted. Noncontrast appearance of the liver and spleen shows no focal abnormality. Increased density noted within the gallbladder which is felt to be due to vicarious excretion of IV contrast. Kidneys show no abnormal calcifications or hydronephrosis. Pancreas is within normal limits. Aorta shows no aneurysm. Drainage catheter seen extending through the vagina into the abdominal cavity. Continuing low density seen within the posterior pelvis measuring 7.9 cm x 5.3 cm. This has slightly decreased in size from previous study but felt to represent considerable abscess remaining. Bone window settings were reviewed which show spondylolisthesis of L5-S1 with bilateral spondylolytic defects as well as disc space narrowing at L5-S1 with vacuum phenomena. Dilated small bowel loops noted with air-fluid levels. Impression: 1. Persistent abscess appears to be present within the posterior pelvis with measurements as noted above. This finding has slightly decreased in size from previous exam. 2. Vaginally placed drainage catheter which is anterior to the abscess. 3. Dilated small bowel loops with air-fluid levels compatible with prominent ileus. 4. Free air most likely representing previous surgery. 5. Small bilateral pleural effusions slightly increased in size on the left side with bibasilar atelectasis. Diagnostic code #3 Agree with preliminary report issued by [facility], additional note of persistent posterior pelvic abscess ([facility] preliminary report dictated on 12/17/18, 1255 Central Time), code #2
== END 2018-12-17 03:45 | DRG 746 ==
LOC: JD.MS 11:34 → OBSVTOIN 12-14 14:22
PROVIDERS: ADMIT Obstetrics & Gynecology; ATTEND Obstetrics & Gynecology
PROC: 0U9MX0Z Drainage of Vulva with Drainage Device, External Approach (ICD-10-PCS; principal; 2018-12-15)
DX: N76.4 Abscess of vulva (principal); J98.11 Atelectasis; K56.7 Ileus, unspecified; K66.8 Other specified disorders of peritoneum; Z90.710 Acquired absence of both cervix and uterus; B95.1 Streptococcus, group B, as the cause of diseases classified elsewhere; R11.2 Nausea with vomiting, unspecified; R19.7 Diarrhea, unspecified; Z87.891 Personal history of nicotine dependence; Z88.0 Allergy status to penicillin; Z88.1 Allergy status to other antibiotic agents
CPT/HCPCS: 36415; 74022; 74022-26; 74176; 74176-26; 74177; 74177-26; 80053; 83735; 85025; 87040; 87075; 87205; 94760; 96361; 96365; 96366; 96375; 96376; A9270-GY; G0378; G0379; J0330; J1100; J1170; J1885; J2001; J2185; J2250; J2270; J2405; J2704; J2765; J3010; J3490; J7040; J7042; J7050; J7120; Q9963; Q9967